=== PATIENT | male | born 1980 | race Two or more races ===

== ENCOUNTER 2020-07-16 09:27 | Outpatient (REF) | payer OTHER, SELFPAY | END 2020-07-16 09:28 | disposition home or self-care (01) | LOC: HO.LAB 09:27 | PROVIDERS: Visit Provider Internal Medicine | DX: Z20.828 Contact with and (suspected) exposure to other viral communicable diseases (principal) | CPT/HCPCS: C9803; U0003 ==

== ENCOUNTER 2020-10-02 13:20 | Outpatient (REF) | payer OTHER, SELFPAY | END 2020-10-02 13:21 | disposition home or self-care (01) | LOC: HO.LAB 13:20 | PROVIDERS: Visit Provider Internal Medicine | DX: Z20.822 Contact with and (suspected) exposure to COVID-19 (principal) | CPT/HCPCS: 36415; C9803; U0003; U0005 ==

== ENCOUNTER 2021-08-21 09:04 | Outpatient (REF) | payer OTHER, SELFPAY ==
[2021-08-21 09:56] LABS: COVID-19 Test Positive (Negative); IDNOW Serial# 55D5AD1C
== END 2021-08-21 09:05 | disposition home or self-care (01) ==
LOC: HO.LAB 09:04
PROVIDERS: Visit Provider Internal Medicine
DX: Z20.822 Contact with and (suspected) exposure to COVID-19 (principal)
CPT/HCPCS: 36415; 87635; C9803

== ENCOUNTER 2021-10-27 11:01 | Outpatient (REF) | payer OTHER, SELFPAY ==
--- NOTE | ~2021-10-27 | XR_ITS ---
EXAMINATION: XR CHEST CLINICAL INFORMATION: Back pain COMPARISON: None TECHNIQUE: 2 views of the chest were obtained. FINDINGS: No significant abnormality is noted involving the heart, lungs, mediastinum, bony thorax or soft tissues. XR/XR chest 2V IMPRESSION: Unremarkable examination.
== END 2021-10-27 11:02 | disposition home or self-care (01) ==
LOC: HO.HMGCX 11:01
PROVIDERS: Visit Provider Physician Assistant
DX: M54.6 Pain in thoracic spine (principal); R61 Generalized hyperhidrosis
CPT/HCPCS: 71046

== ENCOUNTER 2021-11-03 12:58 | Emergency (ER) | payer OTHER, SELFPAY ==
--- NOTE | 2021-11-03 13:25 | ED_ITS ---
HPI - Extremity Injury (Lower) General Stated Complaint: l foot pain Time Seen by Provider: 11/03/21 13:25 Source: patient Mode of arrival: ambulatory Limitations: no limitations History of Present Illness HPI Narrative: Patient was fine this morning and then developed pain to his left foot and has an area of redness to his lower leg. No injury, no fever, no chills Onset (ago): hour(s) Exacerbating factors: weight bearing and movement Related Data Previous Rx's Medication Instructions Recorded loratadine 10 mg tablet 10 mg PO DAILY 90 Days #90 tab 07/30/21 cyclobenzaprine 5 mg tablet 10 mg PO BID PRN #20 tab 10/27/21 methylprednisolone 4 mg tablets in 4 mg PO DAILY #21 ea 10/27/21 a dose pack (Medrol (Lino)) umeclidinium 62.5 mcg/actuation 1 inh INHALATION DAILY 30 Days #30 10/27/21 blister powder for inhalation ea (Incruse Ellipta) cephalexin 500 mg capsule 500 mg PO QID 7 Days #28 cap 11/03/21 Allergies Allergy/AdvReac Type Severity Reaction Status Date / Time No Known Allergies Allergy Verified 11/03/21 13:34 Review of Systems Constitutional: Constitutional: Reports no additional constitutional complaints Eyes: Eyes: Reports no additional eye complaints ENT: Denies dizziness Cardiovascular: Cardiovascular: Reports no additional cardiovascular complaints Respiratory: Respiratory: Reports as per HPI Gastrointestinal: Gastrointestinal: Reports no additional gastrointestinal complaints Musculoskeletal: Musculoskeletal: Reports no additional musculoskeletal complaints Integumentary/Breasts: Skin/Breast: Denies rash Neurologic: Reports system reviewed and no additional complaints, except as documented, Denies dizziness and Denies Sensory deficit (Neuro) Psychiatric: Psychiatric: Denies anxiety [facility] Social History Social History Advance Directives: No Advance Directives Information Provided: Yes Physical Exam Const: General: healthy appearing Nutritional Appearance: average body habitus Orientation/consciousness: oriented to person and patient oriented x3 Limitations: no limitations HENMT: Head: Yes normal to inspection Ears: external ears normal General nose exam: Normal external nose present Mouth: Normal oral and palatal mucosa present and oropharynx normal Throat: Yes posterior oropharynx normal Eyes: General: appearance normal, both eyes and all related structures Neck: Other: supple Neck: Yes normal visual inspection Chest: Chest palpation & inspection: normal inspection of the chest Resp: Auscultation: clear to auscultation bilaterally Cardio: Jugular venous distension: no JVD Rate: regular rate Rhythm: regular rhythm Heart sounds: S1 normal heart sound present and S2 normal heart sound present GI: Inspection: Yes normal to inspection Palpation (GI): Soft to palpation, nontender and No hepatosplenomegaly present Auscultation: normal bowel sounds : General: Yes no CVA tenderness Back/Spine/Pelvis: Back: no CVA tenderness Skin: Other: area of redness and warmth to lower extremity just above the foot in the lower anterior hutchins Neuro: General: oriented to person and patient oriented x3 Cranial nerves: Yes CN's II-XII intact bilaterally Motor exam (neuro): 5/5 motor strength present throughout Sensory Exam: No Sensory deficit (Neuro) Extrem: Other: FROM of ankle, normal DP and PT pulses General: Yes normal to inspection Psych: Appearance: grossly normal Course Reevaluation(s) Reevaluation #1: patient with what appears to be a early cellulitis of the lower leg will start keflex and dc home Time: 13:33 Discharge Plan Discharge Clinical Impression: Cellulitis Patient Disposition: Home, Self-Care Instructions: Cellulitis (ED) Prescriptions: New cephalexin 500 mg capsule 500 mg PO QID 7 Days Qty: 28 0RF No Action loratadine 10 mg tablet 10 mg PO DAILY 90 Days Qty: 90 0RF Incruse Ellipta 62.5 mcg/actuation blister with device 1 inh inhalation DAILY 30 Days Qty: 30 2RF methylprednisolone [Medrol (Lino)] 4 mg tablets,dose pack 4 mg PO DAILY Qty: 21 0RF Rx Instructions: follow dose lino instructions cyclobenzaprine 5 mg tablet 10 mg PO BID PRN (Reason: muscle spasm) Qty: 20 0RF Referrals: [facility], [facility] [Primary Care Provider] - 1 week
== END 2021-11-03 13:52 | disposition home or self-care (01) ==
PROVIDERS: Emergency Provider Emergency Medicine; PCP Nurse Practitioner Family
DX: L03.116 Cellulitis of left lower limb (principal); M79.672 Pain in left foot
CPT/HCPCS: 99281

== ENCOUNTER 2022-08-03 17:06 | Emergency (ER) | payer OTHER, SELFPAY ==
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
[2022-08-03 17:14] VITALS: BP 110/70; PULSE 130; O2SAT 97
[2022-08-03 17:21] VITALS: BP 115/59; PULSE 106; RESP 18; TEMP 36.3; O2SAT 97; BMI 23.3
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
[2022-08-03] MEDS: Diphth,Pertus(ACell),Tet Adult 0.5 ML SYRINGE IM (18:58)
== END 2022-08-03 20:00 | disposition home or self-care (01) ==
PROVIDERS: Emergency Provider Emergency Medicine; PCP Nurse Practitioner Family
DX: S01.112A Laceration without foreign body of left eyelid and periocular area, initial encounter (principal); Y04.2XXA Assault by strike against or bumped into by another person, initial encounter; Y93.89 Activity, other specified; Y92.414 Local residential or business street as the place of occurrence of the external cause; Y99.9 Unspecified external cause status
CPT/HCPCS: 12052; 70450; 70486; 72125; 90471; 90715; 99282; 99284

== ENCOUNTER 2022-10-06 08:29 | Outpatient (REF) | payer OTHER, SELFPAY ==
[2022-10-06 08:49] LABS: MANUAL DIFF FLAG NO
[2022-10-06 09:20] LABS: Basophils Absolute Auto 0.1 X10*3/uL (0.0-0.2); Basophils Percent Auto 0.5 % (0-2); Eosinophils Absolute Auto 0.2 X10*3/uL (0.0-0.4); Eosinophils Percent Auto 1.6 % (0-4); Hemoglobin 14.1 g/dl (14.0-18.0); Imm Gran Abs Auto 0.04 X10*3/uL (0.00-0.03); Imm Gran Pct Auto 0.3 % (0.0-0.4); Lymphocytes Absolute Auto 2.8 X10*3/uL (1.2-4.9); Lymphocytes Percent Auto 22.5 % (20-40); Mean Corpuscular HGB Conc 33.6 g/dl (31.0-36.0); Mean Corpuscular Hemoglobin 32.6 pg (27.0-33.0); Mean Platelet Volume 9.7 fL (9.4-12.4); Monocytes Absolute Auto 0.8 X10*3/uL (0.1-1.2); Monocytes Percent Auto 6.2 % (2-11); Neutrophils Absolute Auto 8.5 x10*3/uL (2.0-8.3); Neutrophils Percent Auto 68.9 % (45-73); Platelet Count 251 X10*3/uL (160-400); Red Blood Count 4.33 X10*6/uL (4.60-5.80); Red Cell Distribution Width 13.7 % (11.0-16.0); White Blood Count 12.3 X10*3/uL (4.8-10.8)
[2022-10-06 10:30] LABS: Appearance Urine Clear; Color Urine Yellow; Glucose Urine UA Negative (Negative); Leukocyte Esterase Urine Negative (Negative); Nitrite Urine Negative (Negative); PH 6.5 (5.0-9.0); Specific Gravity - Urine <= 1.005 (1.005-1.025); Urine Blood Negative (Negative); Urine Ketones Negative (Negative); Urine Protein Negative (Neg-Trace)
[2022-10-06 10:44] LABS: Alanine Aminotransferase 15 U/L (0-40); Albumin Level 4.3 g/dL (3.5-5.0); Alkaline Phosphatase 73 U/L (39-117); Anion Gap 15 (12-20); Aspartate Amino Transferase 17 U/L (5-37); Bilirubin Total 0.5 mg/dL (0.0-1.0); Blood Urea Nitrogen 11 mg/dL (9-16); Carbon Dioxide 24 mmol/L (22-29); Chloride 107 mmol/L (96-108); Cholesterol 206 mg/dL; Estimated Glomerular Filt Rate > 60; Glucose Fasting 81 mg/dL (60-99); HDL Cholesterol 50 mg/dL; LDL Cholesterol Calculated 142 mg/dl; Potassium 4.5 mmol/L (3.3-5.1); Sodium 141 mmol/L (135-145); Total Protein 6.5 g/dL (6.5-8.0); Triglycerides 74 mg/dL
[2022-10-06 10:51] LABS: TSH reflex Free T4 0.74 uIU/mL (0.32-4.0)
[2022-10-06 11:57] LABS: Creatinine Urine 11.27 mg/dL; Microalbumin Urine < 5.0 mg/L
== END 2022-10-06 08:30 | disposition home or self-care (01) ==
LOC: HO.LAB 08:29
PROVIDERS: PCP Family Medicine; Visit Provider Family Medicine
DX: Z00.00 Encounter for general adult medical examination without abnormal findings (principal); Z12.5 Encounter for screening for malignant neoplasm of prostate; I10 Essential (primary) hypertension
CPT/HCPCS: 36415; 80053; 80061; 81003; 82043; 84153; 84443; 85025

== ENCOUNTER → 2022-12-25 12:22 | Outpatient (BNVA) | payer OTHER, SELFPAY | PROVIDERS: PCP Family Medicine; Visit Provider Orthopaedic Surgery | DX: M67.432 Ganglion, left wrist (principal); R20.0 Anesthesia of skin; R20.2 Paresthesia of skin | CPT/HCPCS: 99202 ==

== ENCOUNTER 2023-01-01 12:22 | Outpatient (REF) | payer OTHER, SELFPAY ==
--- NOTE | ~2023-01-01 | XR_ITS ---
EXAMINATION: XR CHEST CLINICAL INFORMATION: Cough COMPARISON: Previous chest TECHNIQUE: 2 views of the chest were obtained. FINDINGS: The cardiac and mediastinal contours are normal. There is faint increased attenuation in the right upper lung for example in between the posterior fourth and fifth ribs questionable for right upper lobe pneumonitis or small infiltrate versus changes from overlying soft tissues. This was not seen on October 2021 exam. The lungs are otherwise clear. No pleural effusion. No pneumothorax. Mild degenerative changes of the spine. XR/XR chest 2V IMPRESSION: Question faint increased attenuation in the right upper lobe questionable for pneumonitis or small infiltrate versus overlying soft tissues.
[2023-01-01 12:40] LABS: MANUAL DIFF FLAG NO
[2023-01-01 13:18] LABS: Basophils Absolute Auto 0.1 X10*3/uL (0.0-0.2); Basophils Percent Auto 0.7 % (0-2); Eosinophils Absolute Auto 0.2 X10*3/uL (0.0-0.4); Eosinophils Percent Auto 1.4 % (0-4); Hematocrit 37.5 % (42.0-52.0); Hemoglobin 12.8 g/dl (14.0-18.0); Imm Gran Abs Auto 0.05 X10*3/uL (0.00-0.03); Imm Gran Pct Auto 0.4 % (0.0-0.4); Lymphocytes Percent Auto 25.6 % (20-40); Mean Corpuscular HGB Conc 34.1 g/dl (31.0-36.0); Mean Corpuscular Hemoglobin 32.7 pg (27.0-33.0); Mean Corpuscular Volume 95.9 fL (80.0-98.0); Mean Platelet Volume 9.5 fL (9.4-12.4); Monocytes Absolute Auto 0.8 X10*3/uL (0.1-1.2); Monocytes Percent Auto 6.4 % (2-11); Neutrophils Absolute Auto 7.7 x10*3/uL (2.0-8.3); Neutrophils Percent Auto 65.5 % (45-73); Platelet Count 240 X10*3/uL (160-400); Red Blood Count 3.91 X10*6/uL (4.60-5.80); Red Cell Distribution Width 13.8 % (11.0-16.0); White Blood Count 11.7 X10*3/uL (4.8-10.8)
[2023-01-01 13:50] LABS: Anion Gap 7 (12-20); Blood Urea Nitrogen 9 mg/dL (9-16); Calcium 9.1 mg/dL (8.4-10.2); Carbon Dioxide 30 mmol/L (22-29); Chloride 108 mmol/L (96-108); Estimated Glomerular Filt Rate > 60; Glucose Random 79 mg/dL (60-115); Potassium 3.8 mmol/L (3.3-5.1); Sodium 141 mmol/L (135-145)
== END 2023-01-01 12:23 | disposition home or self-care (01) ==
LOC: HO.XRAY 12:22
PROVIDERS: PCP Family Medicine; Visit Provider Family Medicine
DX: Z00.00 Encounter for general adult medical examination without abnormal findings (principal); R05.9 Cough, unspecified
CPT/HCPCS: 36415; 71046; 80048; 85025

== ENCOUNTER 2023-02-06 04:57 | Emergency (ER) | payer OTHER, SELFPAY ==
[2023-02-06 04:58] VITALS: BP 102/60; PULSE 88; RESP 16; TEMP 36.6; O2SAT 100; BMI 23.4
[2023-02-06 05:16] VITALS: BP 106/62; PULSE 91; RESP 17; TEMP 36.4; O2SAT 100
[2023-02-06 07:12] VITALS: BP 106/65; PULSE 76; RESP 14; O2SAT 100
[2023-02-06 07:14] LABS: Appearance Urine Clear; Color Urine Yellow; Glucose Urine UA Negative (Negative); Leukocyte Esterase Urine Negative (Negative); Nitrite Urine Negative (Negative); PH 6.5 (5.0-9.0); Specific Gravity - Urine <= 1.005 (1.005-1.025); Urine Blood Negative (Negative); Urine Ketones Negative (Negative); Urine Protein Negative (Neg-Trace)
--- NOTE | 2023-02-06 07:25 | ED.BACK ---
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 Patient reports he bent down to picker / packer a box this morning when he felt his lower back spasm and lock up . This took his breath away for a moment. He is able to ambulate without difficulty. No radiation of pain. Denies fever, SOB, N/V, weakness/ numbness/ tingling of the LE. Related Data Previous Rx's Medication Instructions Recorded loratadine 10 mg tablet 10 mg PO DAILY 90 days #90 tabs 11/26/21 ibuprofen 800 mg tablet 800 mg PO Q8H PRN pain 14 days #42 09/23/22 tabs umeclidinium 62.5 mcg/actuation 1 inh inhalation DAILY 30 days #30 12/24/22 blister powder for inhalation ea (Incruse Ellipta) cyclobenzaprine 10 mg tablet 10 mg PO TID PRN muscle spasm #10 02/06/23 tabs ibuprofen 800 mg tablet 800 mg PO Q8H PRN pain #20 tabs 02/06/23 Allergies Allergy/AdvReac Type Severity Reaction Status Date / Time No Known Allergies Allergy Verified 12/25/22 12:25 Review of Systems Review of Systems: Yes all other systems are reviewed and are negative PMFSH Past Medical History Attestation statement: The following information was validated with the patient. Source: old records reviewed and nursing notes reviewed Medical History ADD (attention deficit disorder) ADHD Asthma COPD (chronic obstructive pulmonary disease) Smoker Family History Family History Mother Mental health disorder Substance abuse Brother Mental health disorder Substance abuse Maternal Grandmother Mental health disorder Maternal Aunt Substance abuse Social History Social History Housing: House Alcohol intake: never Patient Tobacco Use Status: Former Tobacco user Smoked in Last 30 Days: Yes e-Cigarette/Vaping Use: Never Used Second Hand Smoke Exposure: No Use of substances other than those prescribed or required for medical reasons: No Any prior treatment program specific to substance use: No Advance Directives: No Advance Directives Information Provided: Yes Current occupational status: employed 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 Physical Exam Vital Signs: Vital Signs: Last Vital Signs Temp 97.5 F 02/06/23 05:16 Pulse 76 02/06/23 07:12 Resp 14 02/06/23 07:12 BP 106/65 02/06/23 07:12 Pulse Ox 100 02/06/23 07:12 O2 Del Method Room Air 02/06/23 07:12 BMI result Body Mass Index 23.4 Const: General: cooperative, healthy appearing, no acute distress, alert and awake Orientation/consciousness: patient oriented x3 Chest: Other: NSR, no murmurs, rubs or gallops Resp: Other: CTA B/L Back/Spine/Pelvis: Other: + left sided msk TTP Thoracic/Lumbar Spine: thoracic and lumbar spine normal to inspection Neuro: General: patient oriented x3, gait normal and no focal motor deficits Cranial nerves: Yes Normal facial strength present Cognition (Neuro): normal cognition Gait exam (Neuro): Normal gait present Motor exam (neuro): 5/5 motor strength present throughout Extrem: General: Yes normal to inspection and Yes full ROM Medical Decision Making Medical Decision Making [facility] Narrative: 42 year old presenting to the emergency department today with lower back pain s/p lifting a heavy box at work this morning. No fever, bowel/ bladder incontinence/ retention, radiation of symptoms. Physical exam significant for left-sided paraspinal msk tenderness. Normal gait, able to ambulate without difficulty. No imaging necessary at this time. Differential Diagnosis Low suspicion for fracture, cord compression, epidural abscess. Unlikely rib fracture or pneumothorax. Likely lumbar muscle strain. Admission/Observation I considered xray. Not done- low suspcision of spinal or rib fracture. Lab Data [facility] Lab Attestation statement: I reviewed the patient's lab results. Labs: Lab Results 02/06/23 Range/Units 07:07 Urine Color Yellow Urine Appearance Clear Urine pH 6.5 (5.0-9.0) Ur Specific [place] <= 1.005 (1.005-1.025) Urine Protein Negative (Neg-Trace) mg/dL Urine Glucose (UA) Negative (Negative) mg/dL Urine Ketones Negative (Negative) mg/dL Urine Blood Negative (Negative) Urine Nitrite Negative (Negative) Ur Leukocyte Esterase Negative (Negative) Prescription Management I considered prescription management with: Pain Medication (I considered narcotic, not given d/t muscular pain. No fractures.) Chronic Conditions Patient?s care impacted by: Other (Spina bifida occulta, asthma) Discharge Plan Discharge Clinical Impression: Low back pain Patient Disposition: Home, Self-Care Instructions: Acute Low Back Pain (ED) Prescriptions: New ibuprofen 800 mg tablet 800 mg PO Q8H PRN (Reason: pain) Qty: 20 0RF cyclobenzaprine 10 mg tablet 10 mg PO TID PRN (Reason: muscle spasm) Qty: 10 0RF No Action loratadine 10 mg tablet 10 mg PO DAILY 90 Days Qty: 90 0RF Incruse Ellipta 62.5 mcg/actuation blister with device 1 inh inhalation DAILY 30 Days Qty: 30 2RF ibuprofen 800 mg tablet 800 mg PO Q8H PRN (Reason: pain) 14 Days Qty: 42 0RF Stand Alone Forms: Work/School Release Interventions: ED Discharge Assessment Last Done: 02/06/23 07:34 Discharge Date/Time: 02/06/23 07:34
--- NOTE | 2023-02-06 07:34 | PC.NURSE ---
low back pain, worse w movement, nad, ua clean,
== END 2023-02-06 07:34 | disposition home or self-care (01) ==
PROVIDERS: Emergency Provider Emergency Medicine; PCP Family Medicine
DX: Z04.2 Encounter for examination and observation following work accident (principal); M54.50 Low back pain, unspecified; E78.00 Pure hypercholesterolemia, unspecified; Q76.0 Spina bifida occulta; F17.200 Nicotine dependence, unspecified, uncomplicated; Z79.899 Other long term (current) drug therapy
CPT/HCPCS: 81003; 99283; 99284

== ENCOUNTER 2023-02-25 09:36 | Outpatient (REF) | payer OTHER, SELFPAY | END 2023-02-25 09:37 | disposition home or self-care (01) | LOC: HO.NEURO 09:36 | PROVIDERS: PCP Family Medicine; Visit Provider Orthopaedic Surgery | DX: R20.0 Anesthesia of skin (principal); R20.2 Paresthesia of skin | CPT/HCPCS: 95886; 95910 ==

== ENCOUNTER 2023-04-15 09:37 | Outpatient (AMB) | payer OTHER, SELFPAY ==
--- NOTE | 2023-04-15 09:51 | A.OFFPC_ITS ---
Vital Signs 04/15/23 09:52 Height 5 ft 6 in Weight 140 lb 4 oz BMI 22.6 BP 110/68 Blood Pressure Location Lt brachial Position Sitting Respiration 16 Pulse 71 Pulse Source Pulse Oximeter Pulse Oximetry (%) 98 Intake Visit Reasons: f/u medication Intake Note: Patient is here with rash on side of neck, tried creams, but looks nasty with bump. He needs refill of Ibuprofen. Patient is also requesting refill of his inhalers, too. Allergies No Known Allergies Allergy (Verified 04/15/23 09:55) Tobacco use date assessed: 09/23/22 Dental Screening Dental Screen Date: 04/15/23 Did you have a dental visit in the last 12 months?: Yes Did you have a dental problem in the last 6 months where you did not have access to dental care?: No Was dental information given to patient?: Patient has dentist HPI f/u medication HPI Details 42 y/o male presents with complaints of a rash. He has a rash on the side of his neck - he states he has trialed creams. Hx of COPD and is requesting a refill of his inhalers. HPI Comments History of Present Illness Details Documentation assistance for Dipak Moseley MD, was provided by Je Cervantes, Recreation Superintendent on 04/15/2023 10:18 AM EST. I, Dr. Moseley, have read, observed, and verified documentation. 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 1. Little interest or pleasure in doing things: not at all 2. Feeling down, depressed, or hopeless: not at all 3. Trouble falling or staying asleep, or sleeping too much: not at all 4. Feeling tired or having little energy: not at all 5. Poor appetite or overeating: not at all 6. Feeling bad about yourself - or that you are a failure or have let yourself or your family down: not at all 7. Trouble concentrating on things, such as reading the newspaper or watching television: not at all 8. Moving or speaking so slowly that other people could have noticed. Or the opposite - being so fidgety or restless that you have been moving around a lot more than usual: not at all 9. Thoughts that you would be better off or of hurting yourself in some way: not at all Total score: 0 Source: Developed by Drs. Del Koch, Macie Aparicio, Jigar Roper and colleagues, with an educational sylvester from [employer]. Thrive Questionnaire Date Thrive assessed: 09/23/22 I am a: Patient What is your living situation today?: I have a steady place to live Within the past 12 months, did the food you bought not last and you didn't have the money to get more?: Never true Within the past 12 months, did you worry whether your food would run out before you got money to buy more?: Never true Do you have trouble paying for medicines?: No Do you have trouble getting transportation to medical appointments?: No Do you have trouble paying your heating and electricity bill?: No Do you have trouble taking care of your child, family member or friend?: No Do you have trouble with day-to-day activities such as bathing, preparing meals, shopping, managing finances, etc.?: No Are you currently unemployed and looking for a job?: No Are you interested in more education?: No AUDIT C Alcohol Use Questionnaire (AUDIT-C) 1. How often do you have a drink containing alcohol?: Never 3. How often do you have six or more drinks on one occasion?: Never Total Score: 0 ODIN-7 AMB Questionnaire ODIN-7 Date ODIN - 7 assessed: 09/23/22 Feeling nervous, anxious, or on edge: 3 = Nearly every day Not being able to stop or control worryin = Several days Worrying too much about different things: 3 = Nearly every day Trouble relaxin = Nearly every day Being so restless that it is hard to sit still: 3 = Nearly every day Becoming easily annoyed or irritable: 1 = Several days Feeling afraid as if something awful might happen: 0 = Not at all Total ODIN-7 score (0-4 normal; 5-9 mild; 10-14 moderate; 15-21 severe): 14 Source: Developed by Drs. Del Koch, Macie Aparicio, Jigar Roper and colleagues, with an educational sylvester from [employer]. ACT Questionnaire In the past 4 weeks, how much of the time did your asthma keep you from getting as much done at work, school or at home?: All of the time During the past 4 weeks, how often have you had shortness of breath?: More than once a day During the past 4 weeks, how often did your asthma symptoms wake you up at night or earlier than usual in the morning?: 4 or more nights a week During the past 4 weeks, how often have you had to use your rescue inhaler or nebulizer medication?: More than 3 times per day How would you rate your asthma control during the past 4 weeks?: Somewhat contr olled Score: 7 Review of Systems Const Denies chills, Denies fatigue, Denies fever(s), Denies headache(s) and Denies weakness ENT Denies dizziness and Denies headache(s) Card Denies dyspnea Resp Denies cough, Denies dyspnea, Denies wheezing and Denies other (shortness of breath) Musc Denies numbness and Denies tingling Skin/Breast Reports rash Neuro Denies dizziness, Denies headache(s), Denies numbness, Denies tingling and Denies weakness Psych Denies anxiety and Denies depression Endo Denies fatigue Aller/Immun Denies wheezing Physical exam (Primary Care) Vital Signs: Last Vital Signs Pulse 71 04/15/23 09:52 Resp 16 04/15/23 09:52 BP 110/68 04/15/23 09:52 Pulse Ox 98 04/15/23 09:52 BMI result Body Mass Index 22.6 Tobacco/Smoking Status: Tobacco use Status Tobacco use date assessed 09/23/22 04/15/23 09:58 Patient Tobacco Use Status Former Tobacco user 04/15/23 09:58 e-Cigarette/Vaping Use Never Used 04/15/23 09:58 PHQ-9: PHQ-9 Score PHQ-9: Total score 0 04/15/23 10:07 Thrive Assessment: Date of Thrive Assessment Date Thrive assessed 09/23/22 04/15/23 09:58 Const General: well developed; No acute distress Nutritional Appearance: well nourished Orientation/consciousness: patient oriented x3 HENMT Head: Yes normocephalic and Yes atraumatic Eyes General: appearance normal, both eyes and all related structures Pupils: Equal, round and reactive pupils present EOM: EOMs intact bilaterally Resp Effort & Inspection: normal respiratory effort Neuro General: patient oriented x3 and gait normal Cranial nerves: Yes Equal, round and reactive pupils present Psych Affect: normal affect Assessment and Plan Assessment & Plan (1) Rash: Code(s): R21 - Rash and other nonspecific skin eruption Plan: Folliculitis at the back of his neck Will give him a clindamycin gel As there is a significant inflammatory component, he can use some betamethasone as well. Can use Hibiclens for prevention (2) COPD (chronic obstructive pulmonary disease): Code(s): J44.9 - Chronic obstructive pulmonary disease, unspecified Plan: Refilled albuterol and Incruse Ellipta Medications: New albuterol sulfate 90 mcg/actuation 2 puffs inhalation Q4-6H 30 days PRN 8.5 grams 4RF COPD J44.9 - Chronic obstructive pulmonary disease, unspecified cetirizine (All Day Allergy (cetirizine)) 10 mg PO DAILY 30 days PRN 30 tabs 3RF allergy symptoms clindamycin phosphate 1% 1 appl topical DAILY 14 days 30 grams 0RF betamethasone valerate 0.1% 1 appl topical BID 10 days PRN 15 grams 0RF skin irritation Refilled umeclidinium 62.5 mcg/actuation (Incruse Ellipta) 1 inh inhalation DAILY 30 days 30 ea 2RF Coding Level of Care Code Est Pt Level 3 (92667) Diagnoses Rash R21 COPD (chronic obstructive pulmonary disease) J44.9
[2023-04-15 09:52] VITALS: BP 110/68; PULSE 71; RESP 16; O2SAT 98; BMI 22.6
== END 2023-04-15 10:35 | disposition home or self-care (01) ==
PROVIDERS: PCP Family Medicine; Visit Provider Family Medicine
DX: R21 Rash and other nonspecific skin eruption (principal); J44.9 Chronic obstructive pulmonary disease, unspecified
CPT/HCPCS: 99213

== ENCOUNTER 2023-09-23 05:34 | Emergency (ER) | payer OTHER, SELFPAY ==
[2023-09-23 05:41] VITALS: BP 121/73; PULSE 87; RESP 16; TEMP 37.1; O2SAT 97; BMI 22.1
--- NOTE | 2023-09-23 06:55 | ED.EAR ---
HPI - Ear Problem General Chief complaint: Ear Problems Stated complaint: Earache Time Seen by Provider: 09/23/23 06:33 Source: patient and RN notes reviewed Mode of arrival: ambulatory Limitations: no limitations History of Present Illness HPI Narrative: This is a 43-year-old male, with no known medical problems, presenting to the emergency department complaints of left ear pain x3 days. Patient states that he started to have ear discomfort and used a hair pin to ?scoop whenever was in there?. Patient states that he noticed pus that came out immediately from his left ear and had associated pain. He states that since this he has had increased pain and feels as though his hearing is decreased from his left ear. He has been using ibuprofen and Tylenol for pain however this is not helped with his symptoms. He denies any fevers, chills, cough, sore throat, chest pain or shortness a breath. He is otherwise feeling well. No history of ear infections in the past. He has not had any recent swimming. No other complaints or concerns at this time. MD Complaint: ear pain, ear discharge and decreased hearing Location: left ear Duration: constant Severity: moderate Relieving factors: nothing Exacerbating factors: nothing Discharge from ear: yes - purulent Associated symptoms ear: decreased hearing and external ear tenderness Treatment prior to arrival: none Related Data Previous Rx's Medication Instructions Recorded loratadine 10 mg tablet 10 mg PO DAILY 90 days #90 tabs 11/26/21 cyclobenzaprine 10 mg tablet 10 mg PO TID PRN muscle spasm #10 02/06/23 tabs ibuprofen 800 mg tablet 800 mg PO Q8H PRN pain #20 tabs 02/06/23 albuterol sulfate 90 mcg/actuation 2 puff inhalation Q4-6H PRN COPD 04/15/23 aerosol inhaler 30 days #8.5 grams betamethasone valerate 0.1 % 1 appl topical BID PRN skin 04/15/23 topical cream irritation 10 days #15 grams cetirizine 10 mg tablet (All Day 10 mg PO DAILY PRN allergy 04/15/23 Allergy (cetirizine)) symptoms 30 days #30 tabs clindamycin phosphate 1 % topical 1 appl topical DAILY 14 days #30 04/15/23 gel grams umeclidinium 62.5 mcg/actuation 1 inh inhalation DAILY 30 days #30 04/15/23 blister powder for inhalation ea (Incruse Ellipta) ibuprofen 800 mg tablet 800 mg PO Q8H PRN pain 30 days #90 04/30/23 tabs amoxicillin 875 mg-potassium 1 tab PO BID 7 days #14 tabs 09/23/23 clavulanate 125 mg tablet ofloxacin 0.3 % ear drops 10 drp otic (ear) left DAILY 7 09/23/23 days #10 mL Allergies Allergy/AdvReac Type Severity Reaction Status Date / Time No Known Allergies Allergy Verified 09/23/23 05:41 Review of Systems Review of Systems: Yes all other systems are reviewed and are negative Constitutional: Constitutional: Reports as per [facility] Past Medical History Medical History ADD (attention deficit disorder) ADHD Asthma COPD (chronic obstructive pulmonary disease) Smoker Family History Family History Mother Mental health disorder Substance abuse Brother Mental health disorder Substance abuse Maternal Grandmother Mental health disorder Maternal Aunt Substance abuse Social History Social History Housing: House Alcohol intake: never Patient Tobacco Use Status: Former Tobacco user e-Cigarette/Vaping Use: Never Used Second Hand Smoke Exposure: No Advance Directives: No Advance Directives Information Provided: Yes Current occupational status: employed 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 Right TM and ear canal unremarkable. No mastoid tenderness on the left Head: Yes normal to inspection, Yes normocephalic and Yes atraumatic Ears: hearing grossly normal bilaterally General nose exam: Normal external nose present Face and sinus: Yes normal facial exam Mouth: Normal oral and palatal mucosa present, oropharynx normal and moist mucous membranes Throat: Yes posterior oropharynx normal Eyes: General: appearance normal, both eyes and all related structures Eyelids: Yes eyelids normal Conjunctivae: conjunctivae normal Sclerae: sclerae normal Pupils: Equal, round and reactive pupils present EOM: EOMs intact bilaterally Neck: Neck: Yes normal visual inspection, Yes full ROM and Yes no lymphadenopathy Lymphatic: no lymphadenopathy noted Chest: Chest palpation & inspection: normal inspection of the chest Resp: Effort & Inspection: normal respiratory effort and able to speak in complete sentences Auscultation: clear to auscultation bilaterally, no crackles, no rales, no rhonchi and no wheezes Cardio: Rate: regular rate Rhythm: regular rhythm Heart sounds: S1 normal heart sound present and S2 normal heart sound present GI: Inspection: Yes normal to inspection Skin: General skin exam: no rashes or lesions noted Trauma: no lacerations or abrasions Wounds: no wounds Neuro: General: patient oriented x3 and moves all extremities Cranial nerves: Yes Equal, round and reactive pupils present Extrem: General: Yes normal to inspection Right upper extremity: normal to inspection Left upper extremity: normal to inspection Right lower extremity: normal to inspection Left lower extremity: normal to inspection Medical Decision Making Medical Decision Making [facility] Narrative: This is a 43-year-old male, presenting to the emergency department with complaints of left ear pain x2 days. On arrival, vital signs within normal limits. He is nontoxic-appearing. He has pain with palpation to the pinna and ear lobe tugging. Left ear canal is edematous and erythematous, TM also appears erythematous and bulging however unable to fully visualize TM to ensure no rupture. Differential diagnoses include otitis media, otitis externa, TM perforation, mastoiditis-unlikely. Given findings on clinical exam, clinical findings suspicious for otitis/otitis externa will treat with oral and topical antibiotics. Unable to fully visualize TM therefore can not prescribe topical steroids to help with inflammation. I advised patient to continue taking ibuprofen and Tylenol for pain. Given return precautions. Patient understands and agrees with plan. Patient stable for discharge Differential Diagnosis Differential Diagnoses: The differential diagnosis associated with the presentation includes See above Discharge Plan Discharge Clinical Impression: Otitis media, Otitis externa Patient Disposition: Home, Self-Care Instructions: Otitis Externa (ED), How to Use Ear Drops (ED), Ear Infection (ED) Additional Instructions: You were seen in the emergency department due to left ear pain. Your left ear canal is infected as well as the inner portion of your ear. This requires you to be on oral antibiotics and topical antibiotics. When instilling ear drops in your ears, please let on side for 15 20 minutes to ensure that the ear drop medication is fully getting into your ear canal. Please complete full course of antibiotics even if your symptoms improve. You may alternate between ibuprofen and Tylenol as directed as needed for pain. If any new or worsening symptoms occur including but not limited to worsening pain, fever, chills, chest pain or shortness breast, please return for re-evaluation. Prescriptions: New amoxicillin-pot clavulanate 875-125 mg tablet 1 tab PO BID 7 Days Qty: 14 0RF ofloxacin 0.3 % drops 10 drp otic (ear) left DAILY 7 Days Qty: 10 0RF No Action loratadine 10 mg tablet 10 mg PO DAILY 90 Days Qty: 90 0RF ibuprofen 800 mg tablet 800 mg PO Q8H PRN (Reason: pain) 30 Days Qty: 90 0RF ibuprofen 800 mg tablet 800 mg PO Q8H PRN (Reason: pain) Qty: 20 0RF cyclobenzaprine 10 mg tablet 10 mg PO TID PRN (Reason: muscle spasm) Qty: 10 0RF albuterol sulfate 90 mcg/actuation HFA aerosol inhaler 2 puff inhalation Q4-6H PRN (Reason: COPD) 30 Days Qty: 8.5 4RF cetirizine [All Day Allergy (cetirizine)] 10 mg tablet 10 mg PO DAILY PRN (Reason: allergy symptoms) 30 Days Qty: 30 3RF Incruse Ellipta 62.5 mcg/actuation blister with device 1 inh inhalation DAILY 30 Days Qty: 30 2RF clindamycin phosphate 1 % gel 1 appl topical DAILY 14 Days Qty: 30 0RF betamethasone valerate 0.1 % cream 1 appl topical BID PRN (Reason: skin irritation) 10 Days Qty: 15 0RF
== END 2023-09-23 07:25 | disposition home or self-care (01) ==
PROVIDERS: Emergency Provider Internal Medicine; PCP Family Medicine
DX: H66.92 Otitis media, unspecified, left ear (principal); H60.92 Unspecified otitis externa, left ear; H92.02 Otalgia, left ear
CPT/HCPCS: 99282; 99283

== ENCOUNTER 2023-10-12 23:54 | Emergency (ER) | payer OTHER, SELFPAY ==
--- NOTE | 2023-10-13 00:34 | PC.NURSE ---
called x 3 to triage. No answer.
== END 2023-10-13 01:18 | disposition left against medical advice (07) ==
PROVIDERS: Emergency Provider Emergency Medicine
DX: Z53.21 Procedure and treatment not carried out due to patient leaving prior to being seen by health care provider (principal)

== ENCOUNTER 2023-11-25 09:31 | Outpatient (AMB) | payer OTHER, SELFPAY ==
[2023-11-25 09:36] VITALS: BP 128/62; PULSE 58; O2SAT 96; BMI 22.6
--- NOTE | 2023-11-25 09:36 | A.OFFPC_ITS ---
Vital Signs 11/25/23 09:36 Height 5 ft 6 in Weight 140 lb BMI 22.6 BP 128/62 Blood Pressure Location Lt brachial Position Sitting Pulse 58 Pulse Source Pulse Oximeter Pulse Oximetry (%) 96 Oxygen Delivery Method Room Air Intake Visit Reasons: follow up chronic conditions Intake Note: Patient is here for follow up on chronic conditions. Allergies No Known Allergies Allergy (Verified 11/25/23 09:38) Tobacco use date assessed: 11/25/23 Dental Screening Dental Screen Date: 11/25/23 Did you have a dental visit in the last 12 months?: Yes Did you have a dental problem in the last 6 months where you did not have access to dental care?: No Was dental information given to patient?: Patient has dentist HPI follow up chronic conditions HPI Details 43 y/o male [facility]. PHQ-9 16 and ODIN-7 14 today. He reports increased stressors - is dealing with homelessness and is currently staying at a friend's. He sees a therapist every Wednesday. Pt notes he had just started smoking cigarettes again due to increased anxiety. Had just started back up again about a week ago. Pt states he uses Incruse Ellipta daily and albuterol throughout the day. 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 1. Little interest or pleasure in doing things: nearly every day 2. Feeling down, depressed, or hopeless: nearly every day 3. Trouble falling or staying asleep, or sleeping too much: not at all 4. Feeling tired or having little energy: more than half the days 5. Poor appetite or overeating: several days 6. Feeling bad about yourself - or that you are a failure or have let yourself or your family down: nearly every day 7. Trouble concentrating on things, such as reading the newspaper or watching television: several days 8. Moving or speaking so slowly that other people could have noticed. Or the opposite - being so fidgety or restless that you have been moving around a lot more than usual: nearly every day 9. Thoughts that you would be better off or of hurting yourself in some way: not at all Total score: 16 Depression Screening Interpretation: Positive Depression Screening Done: Yes 40095 - PHQ-9 Billing: Yes Source: Developed by Drs. Del Koch, Macie Aparicio, Jigar Roper and colleagues, with an educational sylvester from [employer]. Thrive Questionnaire Date Thrive assessed: 11/25/23 I am a: Patient What is your living situation today?: I have a steady place to live Within the past 12 months, did the food you bought not last and you didn't have the money to get more?: Never true Within the past 12 months, did you worry whether your food would run out before you got money to buy more?: Never true Do you have trouble paying for medicines?: No Do you have trouble getting transportation to medical appointments?: No Do you have trouble paying your heating and electricity bill?: No Do you have trouble taking care of your child, family member or friend?: No Do you have trouble with day-to-day activities such as bathing, preparing meals, shopping, managing finances, etc.?: Yes Are you currently unemployed and looking for a job?: No Are you interested in more education?: No THRIVE Score: 0 AUDIT C Alcohol Use Questionnaire (AUDIT-C) 1. How often do you have a drink containing alcohol?: Never 3. How often do you have six or more drinks on one occasion?: Never Total Score: 0 ODIN-7 AMB Questionnaire ODIN-7 Date ODIN - 7 assessed: 11/25/23 Feeling nervous, anxious, or on edge: 1 = Several days Not being able to stop or control worryin = Several days Worrying too much about different things: 3 = Nearly every day Trouble relaxin = Nearly every day Being so restless that it is hard to sit still: 3 = Nearly every day Becoming easily annoyed or irritable: 3 = Nearly every day Feeling afraid as if something awful might happen: 0 = Not at all Total ODIN-7 score (0-4 normal; 5-9 mild; 10-14 moderate; 15-21 severe): 14 Source: Developed by Drs. Del Koch, Macie Aparicio, Jigar Roper and colleagues, with an educational sylvester from [employer]. ODIN-7 Assessment Billing ODIN-7 Assessment Tool: ODIN-7 Assessment 95689 Review of Systems Const Denies chills, Denies fatigue, Denies fever(s), Denies headache(s) and Denies weakness ENT Denies dizziness and Denies headache(s) Card Denies chest pain, Denies lightheadedness, Denies dyspnea and Denies other (Palpitations) Resp Denies cough, Denies dyspnea, Denies wheezing and Denies other ( shortness of breath) Musc Denies numbness and Denies tingling Neuro Denies dizziness, Denies headache(s), Denies numbness, Denies tingling, Denies paresthesias and Denies weakness Psych Denies anxiety and Denies depression Endo Denies fatigue Aller/Immun Denies wheezing Physical exam (Primary Care) Vital Signs: Last Vital Signs Pulse 58 11/25/23 09:36 BP 128/62 11/25/23 09:36 Pulse Ox 96 11/25/23 09:36 Oxygen Delivery Method Room Air 11/25/23 09:36 BMI result Body Mass Index 22.6 Tobacco/Smoking Status: Tobacco use Status Tobacco use date assessed 11/25/23 11/25/23 09:47 Patient Tobacco Use Status Former Tobacco user 11/25/23 09:47 e-Cigarette/Vaping Use Never Used 11/25/23 09:47 PHQ-9: PHQ-9 Score PHQ-9: Total score 16 11/25/23 09:47 Depression Screening Interpretation: Positive Thrive Assessment: Date of Thrive Assessment Date Thrive assessed 11/25/23 11/25/23 09:47 Const General: no acute distress and well developed Nutritional Appearance: well nourished Orientation/consciousness: patient oriented x3 HENMT Head: Yes normocephalic and Yes atraumatic Eyes General: appearance normal, both eyes and all related structures Pupils: Equal, round and reactive pupils present EOM: EOMs intact bilaterally Resp Other: Wheezing Effort & Inspection: normal respiratory effort Auscultation: clear to auscultation bilaterally Cardio Rate: regular rate Rhythm: regular rhythm Heart sounds: S1 normal heart sound present, S2 normal heart sound present, no gallops, no murmurs and no rubs Neuro General: patient oriented x3 and gait normal Cranial nerves: Yes Equal, round and reactive pupils present Psych Affect: normal affect Assessment and Plan Assessment & Plan (1) COPD (chronic obstructive pulmonary disease): Code(s): J44.9 - Chronic obstructive pulmonary disease, unspecified Plan: Patient?has?started?smoking?again?and?I?encouraged?him?to?keep?trying?to?wean?do wn.??He?used?vapes?to?wean?down?last?time?and?I?encouraged?this?th ough?ultimately?encouraging?him?to?discontinue?vaping?as?well. Continue?inhaled?medications Use?albuterol?when?wheezing Continue?Incruse?Ellipta?as?prescribed (2) Depression with anxiety: Code(s): F41.8 - Other specified anxiety disorders Plan: Acutely?worsened?secondary?to?his?children's ?mom?kicking?him?out?of?the?house.??He?is?staying?with?a?friend. Encouraged?him?to?follow-up?with?his?therapist?tomorrow Encouraged?him?to?follow-up?with?his?psychiatrist?and?discuss?potential?for?an y?medications?or?medication?changes Referred?him?to?our?nurse?navigator?to?see?if?he?can?help?him?with?his?housing?s ituation. (3) Smoker: Code(s): F17.200 - Nicotine dependence, unspecified, uncomplicated Plan: As?above?encouraged?smoking?cessation Orders: Orders Lipid Panel Today Z00.00 - Encounter for general adult medical examination without abnormal findings Prostate Specific Antigen Scr Today Z12.5 - Encounter for screening for malignant neoplasm of prostate Comprehensive [place]. Panel Fast Today Z00.00 - Encounter for general adult medical examination without abnormal findings Microalbumin, Random (w Creat) Today I10 - Essential (primary) hypertension UA and rflx microscopic Today Z00.00 - Encounter for general adult medical examination without abnormal findings TSH reflex Free T4 Today Z00.00 - Encounter for general adult medical examination without abnormal findings Referrals Nurse Navigator Referral F41.8 - Other specified anxiety disorders Coding Level of Care Code Est Pt Level 3 (27721) Diagnoses COPD (chronic obstructive pulmonary disease) J44.9 Depression with anxiety F41.8 Smoker F17.200 Additional Codes ODIN-7 Assessment Billing - ODIN-7 Assessment Tool: ODIN-7 Assessment 22913 ([id number])
== END 2023-11-25 10:15 | disposition home or self-care (01) ==
PROVIDERS: Visit Provider Family Medicine
DX: J44.9 Chronic obstructive pulmonary disease, unspecified (principal); F41.8 Other specified anxiety disorders; F17.210 Nicotine dependence, cigarettes, uncomplicated; Z59.01 Sheltered homelessness
CPT/HCPCS: 96127; 99213

== ENCOUNTER 2023-12-13 07:09 | Outpatient (REF) | payer OTHER, SELFPAY ==
[2023-12-13 11:50] LABS: Appearance Urine Clear; Color Urine Dark Yellow; Glucose Urine UA Negative (Negative); Leukocyte Esterase Urine Negative (Negative); Nitrite Urine Negative (Negative); PH 8.5 (5.0-9.0); Specific Gravity - Urine 1.015 (1.005-1.025); Urine Blood Negative (Negative); Urine Ketones Negative (Negative); Urine Protein Negative (Neg-Trace)
[2023-12-13 11:59] LABS: Alanine Aminotransferase 14 U/L (0-40); Albumin Level 4.1 g/dL (3.5-5.0); Alkaline Phosphatase 85 U/L (39-117); Anion Gap 11 (12-20); Aspartate Amino Transferase 20 U/L (5-37); Bilirubin Total 0.2 mg/dL (0.0-1.0); Blood Urea Nitrogen 12 mg/dL (9-16); Carbon Dioxide 27 mmol/L (22-29); Chloride 106 mmol/L (96-108); Cholesterol 176 mg/dL (<200); Estimated Glomerular Filt Rate > 60; Glucose Fasting 105 mg/dL (60-99); HDL Cholesterol 45 mg/dL (>40); LDL Cholesterol Calculated 115 mg/dL (<100); Potassium 4.1 mmol/L (3.3-5.1); Sodium 140 mmol/L (135-145); Total Protein 7.3 g/dL (6.5-8.0); Triglycerides 82 mg/dL (<150)
[2023-12-13 12:16] LABS: Prostate Specific Antigen Scr 0.25 ng/mL (<0.05-4.0); TSH reflex Free T4 0.64 uIU/mL (0.32-4.0)
[2023-12-13 12:26] LABS: Creatinine Urine 86.66 mg/dL; Microalbumin Urine < 5.0 mg/L
== END 2023-12-13 07:10 | disposition home or self-care (01) ==
LOC: HO.WFDLDS 07:09
PROVIDERS: Visit Provider Family Medicine
DX: Z00.00 Encounter for general adult medical examination without abnormal findings (principal); I10 Essential (primary) hypertension; R30.0 Dysuria; Z12.5 Encounter for screening for malignant neoplasm of prostate
CPT/HCPCS: 36415; 80053; 80061; 81003; 82043; 82570; 84153; 84443

== ENCOUNTER 2023-12-13 10:08 | Outpatient (REF) | payer OTHER, SELFPAY | END 2023-12-13 10:09 | disposition home or self-care (01) | LOC: HO.LAB 10:08 | PROVIDERS: Visit Provider Family Medicine | DX: Z00.00 Encounter for general adult medical examination without abnormal findings (principal); R30.0 Dysuria | CPT/HCPCS: 87086 ==

== ENCOUNTER 2024-04-13 08:44 | Outpatient (AMB) | payer OTHER, SELFPAY ==
--- NOTE | 2024-04-13 08:51 | A.OFFPC_ITS ---
Vital Signs 04/13/24 09:00 Height 5 ft 6 in Weight 139 lb 4 oz BMI 22.5 BP 100/60 Blood Pressure Location Rt brachial Position Sitting Respiration 16 Pulse 91 Pulse Source Pulse Oximeter Temp 97.7 F Temp Source Tympanic Pulse Oximetry (%) 98 Oxygen Delivery Method Room Air Intake Visit Reasons: CPE with f/u labs and health maintenance 30 mins Intake Note: CPE Allergies No Known Allergies Allergy (Verified 04/13/24 08:55) Tobacco use date assessed: 04/13/24 Dental Screening Dental Screen Date: 04/13/24 Did you have a dental visit in the last 12 months?: No Did you have a dental problem in the last 6 months where you did not have access to dental care?: Yes Was dental information given to patient?: Patient has dentist HPI CPE with f/u labs and health maintenance 30 mins HPI Details 43 y/o male presents for an extended exa m with f/u labs and health maintenance. Labs drawn 12/13/23. Reviewed labs with pt. Had mild anemia before last year. Elevated fasting glucose of 105. TC 176. LDL 115. HDL 45. PSA 0.25. TSH 0.64. Pt notes he had just joined a gym this morning. Pt reports GERD. He notes he had used to take ibuprofen 800mg four times a day. He reports significant back pain. He states he now takes one ibuprofen every other day. He notes he has trialed PT before in the past. Pt reports a cough. Pt reports he continues to smoke. Has been smoking since he was 20 and pt states he quits off and on. [facility] Medical History ADD (attention deficit disorder) ADHD Asthma COPD (chronic obstructive pulmonary disease) Smoker Family History Mother Mental health disorder Substance abuse Brother Mental health disorder Substance abuse Maternal Grandmother Mental health disorder Maternal Aunt Substance abuse Social History (Updated 04/13/24 @ 08:58 by Jonathan Lewis) Housing: House Alcohol intake: never Patient Tobacco Use Status: Current someday Tobacco user Cigarettes Per Day: 1 e-Cigarette/Vaping Use: Never Used Second Hand Smoke Exposure: No Use of substances other than those prescribed or required for medical reasons: Yes Substance Use Type: Marijuana service: No Current occupational status: employed 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 1. Little interest or pleasure in doing things: several days 2. Feeling down, depressed, or hopeless: several days 3. Trouble falling or staying asleep, or sleeping too much: several days 4. Feeling tired or having little energy: several days 5. Poor appetite or overeating: several days 6. Feeling bad about yourself - or that you are a failure or have let yourself or your family down: several days 7. Trouble concentrating on things, such as reading the newspaper or watching television: not at all 8. Moving or speaking so slowly that other people could have noticed. Or the opposite - being so fidgety or restless that you have been moving around a lot more than usual: several days 9. Thoughts that you would be better off or of hurting yourself in some way: not at all Total score: 7 Depression Screening Interpretation: Positive Depression Screening Done: Yes 21308 - PHQ-9 Billing: Yes Source: Developed by Drs. Del Koch, Macie Aparicio, Jigar Roper and colleagues, with an educational sylvester from [employer]. Thrive Questionnaire Date Thrive assessed: 04/13/24 I am a: Patient What is your living situation today?: I have a steady place to live Within the past 12 months, did the food you bought not last and you didn't have the money to get more?: Never true Within the past 12 months, did you worry whether your food would run out before you got money to buy more?: Never true Do you have trouble paying for medicines?: No Do you have trouble getting transportation to medical appointments?: No Do you have trouble paying your heating and electricity bill?: No Do you have trouble taking care of your child, family member or friend?: No Do you have trouble with day-to-day activities such as bathing, preparing meals, shopping, managing finances, etc.?: No Are you currently unemployed and looking for a job?: No Are you interested in more education?: No Please select the resources that you would like help with: None Currently or been in a relationship where the following occur: No concerns reported THRIVE Score: 0 AUDIT C Alcohol Use Questionnaire (AUDIT-C) 1. How often do you have a drink containing alcohol?: Never 3. How often do you have six or more drinks on one occasion?: Never Total Score: 0 Score Reviewed/Action Taken: Yes ODIN-7 AMB Questionnaire ODIN-7 Date ODIN - 7 assessed: 04/13/24 Feeling nervous, anxious, or on edge: 1 = Several days Not being able to stop or control worryin = Several days Worrying too much about different things: 1 = Several days Trouble relaxin = Several days Being so restless that it is hard to sit still: 1 = Several days Becoming easily annoyed or irritable: 1 = Several days Feeling afraid as if something awful might happen: 1 = Several days Total ODIN-7 score (0-4 normal; 5-9 mild; 10-14 moderate; 15-21 severe): 7 Source: Developed by Drs. Del Koch, Macie Aparicio, Jigar Roper and colleagues, with an educational sylvester from [employer]. ODIN-7 Assessment Billing ODIN-7 Assessment Tool: ODIN-7 Assessment 60621 Review of Systems Const Denies chills, Denies fatigue, Denies fever(s), Denies headache(s) and Denies weakness Eyes Denies change in vision ENT Denies dizziness, Denies headache(s), Denies hearing loss, Denies nasal c ongestion, Denies sinus pain, Denies sinus pressure and Denies sore throat Card Denies chest pain, Denies lightheadedness, Denies dyspnea and Denies other (palpitations) Resp Reports cough, Denies dyspnea and Denies wheezing GI Denies abdominal pain, Denies melena, Denies hematochezia, Denies change in bowel habits, Denies dyspepsia and Denies nausea Denies hematuria and Denies dysuria Musc Denies abnormal gait, Denies myalgias, Denies arthralgias, Denies numbness and Denies tingling Skin/Breast Denies rash, Denies unusual bruising and Denies wounds Neuro Denies abnormal gait, Denies dizziness, Denies headache(s), Denies memory loss, Denies numbness, Denies Sensory deficit (Neuro), Denies tingling and Denies weakness Psych Denies anxiety, Denies depression and Denies memory loss Endo Denies cold intolerance, Denies fatigue, Denies heat intolerance, Denies polydipsia and Denies polyuria Wilfredo/Lymph Denies easy bleeding and Denies easy bruising Aller/Immun Denies wheezing Physical exam (Primary Care) Vital Signs: Last Vital Signs Temp 97.7 F 04/13/24 09:00 Pulse 91 04/13/24 09:00 Resp 16 04/13/24 09:00 BP 100/60 04/13/24 09:00 Pulse Ox 98 04/13/24 09:00 Oxygen Delivery Method Room Air 04/13/24 09:00 BMI result Body Mass Index 22.5 Tobacco/Smoking Status: Tobacco use Status Tobacco use date assessed 04/13/24 04/13/24 09:04 Patient Tobacco Use Status Current someday Tobacco 04/13/24 09:04 e-Cigarette/Vaping Use Never Used 04/13/24 08:58 PHQ-9: PHQ-9 Score PHQ-9: Total score 7 04/13/24 09:20 Depression Screening Interpretation: Positive Thrive Assessment: Date of Thrive Assessment Date Thrive assessed 04/13/24 04/13/24 09:04 Currently or been in a relationship where the following occur: No concerns reported Const General: no acute distress, well developed, alert and awake Nutritional Appearance: well nourished Orientation/consciousness: patient oriented x3 HENMT Head: Yes normocephalic and Yes atraumatic Ears: hearing grossly normal bilaterally and TM's normal bilaterally General nose exam: Normal external nose present and Normal nares present Mouth: Normal oral and palatal mucosa present and moist mucous membranes Teeth and gingiva: dentition normal Throat: Yes posterior oropharynx normal Eyes General: appearance normal, both eyes and all related structures Pupils: Equal, round and reactive pupils present and Pupil accommodation reflex normal EOM: EOMs intact bilaterally Neck Neck: Yes normal visual inspection, Yes no lymphadenopathy and Yes trachea midline Thyroid: Thyroid normal Carotids: no bruits Lymphatic: no lymphadenopathy noted Chest Chest palpation & inspection: normal inspection of the chest Resp Other: Coarse breath sounds Effort & Inspection: normal respiratory effort Auscultation: clear to auscultation bilaterally Cardio Rate: regular rate Rhythm: regular rhythm Heart sounds: S1 normal heart sound present, S2 normal heart sound present, no gallops, no murmurs and no rubs Bruits: no abdominal aortic bruits and no carotid bruits GI Palpation (GI): No Abdominal aortic bruit present, Soft to palpation, nontender, No hepatosplenomegaly present and No Rebound tenderness present Auscultation: normal bowel sounds General: Yes no CVA tenderness Back/Spine/Pelvis Back: no CVA tenderness Cervical Spine: cervical ROM normal and No Cervical spine tenderness Thoracic/Lumbar Spine: thoraco-lumbar ROM normal, No pain with thoraco-lumbar ROM, No thoracic spinal tenderness and No lumbar spinal tenderness Skin Lesions: no lesions Rashes: no rashes Trauma: no lacerations or abrasions Wounds: no wounds Nails: normal Neuro General: patient oriented x3 Cranial nerves: Yes Equal, round and reactive pupils present Cognition (Neuro): normal cognition Gait exam (Neuro): Normal gait present Motor exam (neuro): 5/5 motor strength present throughout Sensory Exam: No Sensory deficit (Neuro) Deep tendon reflexes (DTR's): Right patellar reflex intensity grade: 2+ and Left patellar reflex intensity grade: 2+ Extrem General: Yes normal to inspection and No edema Psych Appearance: grossly normal Affect: normal affect Attitude: cooperative Thought process: Normal thought process present Assessment and Plan Assessment & Plan (1) Elevated fasting glucose: Code(s): R73.01 - Impaired fasting glucose Plan: Mildly?elevated?fasting?blood?sugar Will?recheck?this?along?with?an?A1c?test (2) Mild anemia: Code(s): D64.9 - Anemia, unspecified Plan: Previously?mild?anemia Recheck?CBC (3) Hypercholesterolemia: Code(s): E78.00 - Pure hypercholesterolemia, unspecified Plan: Mildly?elevated?LDL?cholesterol?and?I?encouraged?a?diet?lower?in?saturated?fats? and?cholesterol (4) Cough: Code(s): R05.9 - Cough, unspecified Plan: Patient?has?history?of?COPD?and?smoking?and?a?chronic?cough.??Also?has?a?history ?of?GERD Check?chest?x-ray (5) Low back pain: Code(s): M54.50 - Low back pain, unspecified Plan: Chronic?low?back?pain He?can?use?ibupro fen?but?do?not?exceed?recommended?doses.??Can?also?use?some?Tylenol?and?topicals .??Also?ice/heat (6) Smoker: Code(s): F17.200 - Nicotine dependence, unspecified, uncomplicated Plan: Encouraged?further?weaning/cessation?of?smoking.??Patient?is?down?to?about?1?cig arette?per?week Encouraged?him?to?quit (7) Screening for prostate cancer: Code(s): Z12.5 - Encounter for screening for malignant neoplasm of prostate Plan: PSA?was?within?normal?range Will?continue?annual?screening (8) GERD (gastroesophageal reflux disease): Code(s): K21.9 - Gastro-esophageal reflux disease without esophagitis Plan: Trial?omeprazole (9) Adult general medical exam: Code(s): Z00.00 - Encounter for general adult medical examination without abnormal findings Orders: Orders XR chest 2V Today F17.200 - Nicotine dependence, unspecified, uncomplicated, J44.9 - Chronic obstructive pulmonary disease, unspecified, R05.9 - Cough, unspecified Medications: New omeprazole 20 mg PO DAILY 90 caps 2RF 90 days Patient Instructions: 43-year-old?male?presents?for?an?extended?exam Encouraged?healthy?diet?with?active?lifestyle?and?plenty?of?exercise Coding Level of Care Code Est Pt Level 4 (03439) Diagnoses Elevated fasting glucose R73.01 Mild anemia D64.9 Hypercholesterolemia E78.00 Cough R05.9 Low back pain M54.50 Smoker F17.200 Screening for prostate cancer Z12.5 GERD (gastroesophageal reflux disease) K21.9 Adult general medical exam Z00.00 Additional Codes ODIN-7 Assessment Billing - ODIN-7 Assessment Tool: ODIN-7 Assessment 87701 ([id number])
[2024-04-13 09:00] VITALS: BP 100/60; PULSE 91; RESP 16; TEMP 36.5; O2SAT 98; BMI 22.5
== END 2024-04-13 09:37 | disposition home or self-care (01) ==
PROVIDERS: Visit Provider Family Medicine
DX: R73.01 Impaired fasting glucose (principal); D64.9 Anemia, unspecified; E78.00 Pure hypercholesterolemia, unspecified; R05.9 Cough, unspecified; M54.50 Low back pain, unspecified; F17.200 Nicotine dependence, unspecified, uncomplicated; Z12.5 Encounter for screening for malignant neoplasm of prostate; K21.9 Gastro-esophageal reflux disease without esophagitis
CPT/HCPCS: 99214

== ENCOUNTER 2024-05-13 07:55 | Outpatient (REF) | payer OTHER, SELFPAY ==
--- NOTE | ~2024-05-13 | XR_ITS ---
EXAMINATION: XR CHEST CLINICAL INFORMATION: Cough COMPARISON: January 01, 2023 TECHNIQUE: 2 views of the chest were obtained. FINDINGS: No significant abnormality is noted involving the heart, lungs, mediastinum, bony thorax or soft tissues. XR/XR chest 2V IMPRESSION: No radiographic evidence of acute cardiopulmonary disease. Electronically signed by: Stacie Fulton MD 05/13/2024 11:28 AM EDT
[2024-05-13 08:42] LABS: MANUAL DIFF FLAG NO
[2024-05-13 09:50] LABS: Basophils Percent Auto 0.5 % (0-2); Eosinophils Absolute Auto 0.2 X10*3/uL (0.0-0.4); Eosinophils Percent Auto 2.3 % (0-4); Hematocrit 43.5 % (42.0-52.0); Hemoglobin 14.7 g/dl (14.0-18.0); Imm Gran Abs Auto 0.02 X10*3/uL (0.00-0.03); Imm Gran Pct Auto 0.3 % (0.0-0.4); Lymphocytes Absolute Auto 1.4 X10*3/uL (1.2-4.9); Lymphocytes Percent Auto 19.3 % (20-40); Mean Corpuscular HGB Conc 33.8 g/dl (31.0-36.0); Mean Corpuscular Hemoglobin 32.1 pg (27.0-33.0); Mean Platelet Volume 9.4 fL (9.4-12.4); Monocytes Absolute Auto 0.8 X10*3/uL (0.1-1.2); Monocytes Percent Auto 10.4 % (2-11); Neutrophils Percent Auto 67.2 % (45-73); Platelet Count 197 X10*3/uL (160-400); Red Blood Count 4.58 X10*6/uL (4.60-5.80); Red Cell Distribution Width 14.6 % (11.0-16.0); White Blood Count 7.5 X10*3/uL (4.8-10.8)
[2024-05-13 09:59] LABS: Estimated Average Glucose 97 mg/dL
[2024-05-13 10:08] LABS: Alanine Aminotransferase 15 U/L (0-40); Albumin Level 4.4 g/dL (3.5-5.0); Alkaline Phosphatase 78 U/L (39-117); Anion Gap 10 (12-20); Aspartate Amino Transferase 22 U/L (5-37); Bilirubin Total 0.3 mg/dL (0.0-1.0); Blood Urea Nitrogen 11 mg/dL (9-16); Calcium 9.1 mg/dL (8.4-10.2); Carbon Dioxide 25 mmol/L (22-29); Chloride 110 mmol/L (96-108); Estimated Glomerular Filt Rate > 60; Glucose Fasting 88 mg/dL (60-99); Potassium 4.2 mmol/L (3.3-5.1); Sodium 141 mmol/L (135-145); Total Protein 7.9 g/dL (6.5-8.0)
== END 2024-05-13 07:56 | disposition home or self-care (01) ==
LOC: HO.XRAY 07:55
PROVIDERS: PCP Family Medicine; Visit Provider Family Medicine
DX: Z00.00 Encounter for general adult medical examination without abnormal findings (principal); R73.01 Impaired fasting glucose; D64.9 Anemia, unspecified; R05.9 Cough, unspecified; F17.200 Nicotine dependence, unspecified, uncomplicated; J44.9 Chronic obstructive pulmonary disease, unspecified
CPT/HCPCS: 36415; 71046; 80053; 83036; 85025

== ENCOUNTER 2024-05-18 10:37 | Outpatient (AMB) | payer OTHER, SELFPAY ==
--- NOTE | 2024-05-18 10:50 | A.OFFPC_ITS ---
Vital Signs 05/18/24 10:51 Height 5 ft 6 in Weight 135 lb 4 oz BMI 21.8 BP 110/50 L Blood Pressure Location Lt brachial Position Sitting Respiration 12 Pulse 97 Pulse Source Pulse Oximeter Temp 99.4 F Temp Source Oral Pulse Oximetry (%) 97 Oxygen Delivery Method Room Air Intake Visit Reasons: f/u labs, chest x-ray Intake Note: lab and xray review Allergies No Known Allergies Allergy (Verified 05/18/24 10:50) Medication List - Last Reconciled 05/18/24 by Dipak Moseely MD albuterol sulfate 90 mcg/actuation 2 puffs inhalation Q4-6H PRN 30 days betamethasone valerate 0.1% 1 appl topical BID PRN 10 days cetirizine (All Day Allergy (cetirizine)) 10 mg PO DAILY PRN 30 days cyclobenzaprine 10 mg PO TID PRN ibuprofen 800 mg PO Q8H PRN ibuprofen 800 mg PO Q8H PRN 30 days omeprazole 20 mg PO DAILY 90 days umeclidinium 62.5 mcg/actuation (Incruse Ellipta) 1 inh inhalation DAILY 30 days Tobacco use date assessed: 04/13/24 Dental Screening Dental Screen Date: 04/13/24 HPI f/u labs, chest x-ray HPI Details Pt presents to review additional lab work for history of mild anemia and also elevated fasting blood sugar. Also f/u chronic cough/patient is a smoker with hx of COPD. Checking x-ray. Prior chest x-ray sometime ago showed possible pneumonitis. Labs drawn 05/13/24. Reviewed labs with pt. Liver enzymes are fine. RBC mildly low at 4.58 but otherwise anemia resolved. A1c 5.0%. Chest x-ray 05/13/24 was fine. Pt continues to work on trying to quit smoking. PFSH Medical History ADD (attention deficit disorder) ADHD Asthma COPD (chronic obstructive pulmonary disease) Smoker Family History Mother Mental health disorder Substance abuse Brother Mental health disorder Substance abuse Maternal Grandmother Mental health disorder Maternal Aunt Substance abuse Social History (Updated 04/13/24 @ 08:58 by Jonathan Lewis MA) Housing: House Alcohol intake: never Patient Tobacco Use Status: Current someday Tobacco user Cigarettes Per Day: 1 e-Cigarette/Vaping Use: Never Used Second Hand Smoke Exposure: No Substance Use Type: Marijuana service: No Current occupational status: employed 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 Del Koch, Macie Aparicio, Jigar Roper and colleagues, with an educational sylvester from [employer]. Review of Systems Const Denies chills, Denies fatigue, Denies fever(s), Denies headache(s) and Denies weakness ENT Denies dizziness and Denies headache(s) Card Denies dyspnea Resp Denies cough, Denies dyspnea, Denies wheezing and Denies other (shortness of b reath) Musc Denies numbness and Denies tingling Neuro Denies dizziness, Denies headache(s), Denies numbness, Denies tingling and Denies weakness Psych Denies anxiety and Denies depression Endo Denies fatigue Aller/Immun Denies wheezing Physical exam (Primary Care) Vital Signs: Last Vital Signs Temp 99.4 F 05/18/24 10:51 Pulse 97 05/18/24 10:51 Resp 12 05/18/24 10:51 BP 110/50 L 05/18/24 10:51 Pulse Ox 97 05/18/24 10:51 Oxygen Delivery Method Room Air 05/18/24 10:51 BMI result Body Mass Index 21.8 Tobacco/Smoking Status: Tobacco use Status Tobacco use date assessed 04/13/24 05/18/24 10:53 Patient Tobacco Use Status Current someday Tobacco 05/18/24 10:53 e-Cigarette/Vaping Use Never Used 05/18/24 10:53 Thrive Assessment: Date of Thrive Assessment Date Thrive assessed 04/13/24 05/18/24 10:53 Const General: well developed; No acute distress Nutritional Appearance: well nourished Orientation/consciousness: patient oriented x3 HENMT Head: Yes normocephalic and Yes atraumatic Eyes General: appearance normal, both eyes and all related structures Pupils: Equal, round and reactive pupils present EOM: EOMs intact bilaterally Resp Effort & Inspection: normal respiratory effort Neuro General: patient oriented x3 and gait normal Cranial nerves: Yes Equal, round and reactive pupils present Psych Affect: normal affect Assessment and Plan Assessment & Plan (1) Mild anemia: Code(s): D64.9 - Anemia, unspecified Plan: Resolved (2) Smoker: Code(s): F17.200 - Nicotine dependence, unspecified, uncomplicated Plan: Patient?is?actively?working?on?weaning?down I?encouraged?continued?weaning?and?cessation Patient?had?had?a?chest?x-ray?a?year?ago?that?suggested?pneumonitis. Repeat?chest?x-ray?was?normal (3) Elevated fasting glucose: Code(s): R73.01 - Impaired fasting glucose Plan: Repeat?fasting?blood?sugar?was?within?normal?range. A1c?5.0?was?within?normal?range Coding Level of Care Code Est Pt Level 4 (03033) Diagnoses Mild anemia D64.9 Smoker F17.200 Elevated fasting glucose R73.01
[2024-05-18 10:51] VITALS: BP 110/50; PULSE 97; RESP 12; TEMP 37.4; O2SAT 97; BMI 21.8
== END 2024-05-18 11:37 | disposition home or self-care (01) ==
PROVIDERS: Visit Provider Family Medicine
DX: D64.9 Anemia, unspecified (principal); F17.200 Nicotine dependence, unspecified, uncomplicated; R73.01 Impaired fasting glucose

== ENCOUNTER → 2024-05-18 10:37 | Outpatient (BNVA) | payer OTHER, SELFPAY | PROVIDERS: Visit Provider Family Medicine | DX: D64.9 Anemia, unspecified (principal); R73.01 Impaired fasting glucose; F17.200 Nicotine dependence, unspecified, uncomplicated; Z71.6 Tobacco abuse counseling | CPT/HCPCS: 99212 ==

== ENCOUNTER 2024-10-03 12:35 | Outpatient (AMB) | payer OTHER, SELFPAY ==
--- NOTE | 2024-10-03 14:14 | MHC.OFFWIV ---
Intake Vital Signs 10/03/24 14:17 Weight 144 lb BP 120/84 Blood Pressure Location Lt brachial Position Sitting Pulse 77 Pulse Source Pulse Oximeter Temp 98 F Temp Source Oral Pulse Oximetry (%) 97 Oxygen Delivery Method Room Air Intake Visit Reasons: EP-lt side chin swollen Intake Note: Patient here for left side of chin swelling that has been present since yesterday. Patient Tobacco Use Status: Current someday Tobacco user Allergies No Known Allergies Allergy (Verified 10/03/24 14:17) Do you need a note to return to daycare/school/sports/work: No HPI HPI Comments History of Present Illness Details This is a 44-year-old male with no stated past medical history presenting for evaluation of left-sided chin swelling he has had for the past 1 day. Patient states last week he nicked his chin while shaving with a disposable razor. Patient noticed swelling thereafter and used tweezers to remove an ingrown hair yesterday. Patient states that the swelling persists. He noted brown colored discharge from his chin this morning but denies having any fevers, chills, dental pain or difficulty swallowing. Patient has taken ibuprofen only without relief of his discomfort. [facility] Medical History ADD (attention deficit disorder) ADHD Asthma COPD (chronic obstructive pulmonary disease) Smoker Family History Mother Mental health disorder Substance abuse Brother Mental health disorder Substance abuse Maternal Grandmother Mental health disorder Maternal Aunt Substance abuse Social History (Updated 04/13/24 @ 08:58 by Jonathan Lewis [facility]) Housing: House Alcohol intake: never Patient Tobacco Use Status: Current someday Tobacco user Cigarettes Per Day: 1 e-Cigarette/Vaping Use: Never Used Second Hand Smoke Exposure: No Substance Use Type: Marijuana service: No Current occupational status: employed 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 Cognitive needs: No Hearing needs: No Vision needs: No Review of Systems Const All systems reviewed & are unremarkable except as noted in HPI and below Denies chills and Denies fever(s) Eyes Reports no additional complaints ENT Reports no additional complaints Card Reports no additional complaints Resp Reports no additional complaints GI Reports no additional complaints Reports no additional complaints Musc Reports no additional complaints Skin/Breast Reports lesions (chin) and Reports skin swelling (chin) Neuro Reports no additional complaints Psych Reports no additional complaints Endo Reports no additional complaints Wilfredo/Lymph Reports no additional complaints Aller/Immun Reports no additional complaints Physical Exam Vital Signs: Last Vital Signs Temp 98 F 10/03/24 14:17 Pulse 77 10/03/24 14:17 BP 120/84 10/03/24 14:17 Pulse Ox 97 10/03/24 14:17 Oxygen Delivery Method Room Air 10/03/24 14:17 Patient is afebrile. Const General: cooperative, healthy appearing, comfortable, no acute distress, well developed, alert, awake and Physically active Nutritional Appearance: average body habitus Orientation/consciousness: patient oriented x3 Limitations: no limitations Skin Lesions: lesion noted (excoriated pustule left aspect of chin with surrounding erythema and edema) Neuro General: patient oriented x3 Psych Appearance: grossly normal Mental Status: mental status grossly normal Insight: Good insight present (Psych) Judgement: Good judgement present (Psych) Assessment & Plan Assessment & Plan (1) Cellulitis of chin: Comment: There is no fluctuance or discharge noted upon clinical examination however there is tenderness, edema and erythema. Patient will be discharged home with antibiotic therapy. Code(s): L03.211 - Cellulitis of face Plan: Warm moist compresses 4 times daily; doxycycline b.i.d. x7 days. Patient will follow up with his primary care provider next week if his symptoms have not resolved. Medications: New doxycycline hyclate 100 mg PO BID 14 caps 0RF Coding Level of Care Code Est Pt Level 3 (30907) Diagnoses Cellulitis of chin L03.211 Time Spent (min) 20
[2024-10-03 14:17] VITALS: BP 120/84; PULSE 77; TEMP 36.6; O2SAT 97
== END 2024-10-03 14:40 | disposition home or self-care (01) ==
PROVIDERS: Visit Provider Physician Assistant
DX: L03.211 Cellulitis of face (principal)

== ENCOUNTER → 2024-10-03 12:35 | Outpatient (BNVA) | payer OTHER, SELFPAY | DX: L03.211 Cellulitis of face (principal) | CPT/HCPCS: 99212 ==

== ENCOUNTER 2024-12-23 18:35 | Inpatient (IN) | payer OTHER, SELFPAY ==
--- NOTE | ~2024-12-23 | CT_ITS ---
CLINICAL HISTORY: hand swelling. Abscess? tenosynovititis? CT right hand with intravenous contrast Comparison: CR - XR HAND RT MIN 3V - 12/23/24 19:23 EDT Findings: Subcutaneous edema predominantly around the metacarpals and thenar eminence. No soft tissue gas or abscess. No evidence of osteomyelitis. No acute fracture or dislocation. Limited evaluation for tenosynovitis on CT. Tendons appear normal in caliber. IMPRESSION: Subcutaneous edema predominantly around the metacarpals and thenar eminence. No soft tissue gas or abscess. Limited evaluation for tenosynovitis on CT. Tendons appear normal in caliber. This document has been electronically signed by: Mima Ren MD on 12/24/2024 01:16:14
--- NOTE | ~2024-12-23 | US_ITS ---
CLINICAL HISTORY: right hand swelling. DVT? Venous duplex ultrasound right upper extremity Comparison: CR - XR HAND RT MIN 3V - 12/23/24 19:23 EDT Findings: Accessible deep venous segments are fully compressible with normal Doppler color flow and spectral tracings. Soft tissue edema. IMPRESSION: 1. Negative for right upper extremity deep vein thrombosis. This document has been electronically signed by: Pati Shipley MD on 12/23/2024 23:05:45
--- NOTE | ~2024-12-23 | XR_ITS ---
CLINICAL HISTORY: pain, swelling RIGHT HAND X-RAYS COMPARISON: None. FINDINGS: A total of 3 views of the right hand were obtained. There is no evidence of an acute fracture or dislocation. There are no bony destructive changes. IMPRESSION: 1. No acute disease. This document has been electronically signed by: Jordy Godoy M.D. on 12/24/2024 03:24:54
[2024-12-23 18:38] VITALS: BP 121/75; PULSE 92; RESP 18; TEMP 37.3; O2SAT 98; BMI 21.6
--- NOTE | 2024-12-23 18:43 | ED_ITS ---
HPI - Extremity Problem General Chief complaint: Extremity Injury, Lower Stated complaint: swollen right hand and elbow Time Seen by Provider: 12/23/24 20:26 Source: patient Mode of arrival: ambulatory Limitations: no limitations History of Present Illness ED Provider: Benito Patricio HPI Narrative: 44 yold male with no pmh presents to the ED for Right hand swelling since yesterday. Patient states yesterday was working with his nephew picked up plastic Aks and then had a blister in his hand which caused a blister on dorsal aspect of hand which he scratched. Later than night he started having swelling of the hand and pain. Patient states chills but no fever. Patient denies any history of IV drug use or blunt trauma. Related Data Home Medications ?Medication ?Instructions ?Recorded ?Confirmed albuterol sulfate 90 mcg/actuation 2 puff inhalation Q6H PRN COPD 12/24/24 12/24/24 aerosol inhaler Previous Rx's ?Medication ?Instructions ?Recorded ibuprofen 800 mg tablet 800 mg PO Q8H PRN pain #20 tabs 02/06/23 umeclidinium 62.5 mcg/actuation 1 inh inhalation DAILY 30 days #30 04/15/23 blister powder for inhalation ea (Incruse Ellipta) cetirizine 10 mg tablet (All Day 10 mg PO DAILY PRN allergy 03/27/24 Allergy (cetirizine)) symptoms 30 days #30 tabs Allergies Allergy/AdvReac Type Severity Reaction Status Date / Time No Known Allergies Allergy Verified 12/23/24 18:38 Review of Systems 2 Review of Systems: Right hand swelling/pain Yes all other systems are reviewed and are negative [facility] Past Medical History Medical History Smoker ADD (attention deficit disorder) ADHD Asthma COPD (chronic obstructive pulmonary disease) Family History Family History Mother Mental health disorder Substance abuse Brother Mental health disorder Substance abuse Maternal Grandmother Mental health disorder Maternal Aunt Substance abuse Social History Social History Household Members: None Housing: Apartment Do you presently have visiting nurse or other home services: No Alcohol intake: never Patient Tobacco Use Status: Current everyday Tobacco user Tobacco use type: Cigarette Cigarette Packs Per Day: 1 Cigarettes Per Day: 20.0 e-Cigarette/Vaping Use: Never Used Second Hand Smoke Exposure: No Substance Use Type: Marijuana service: No Current occupational status: employed 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 Cognitive needs: No Hearing needs: No Vision needs: No Physical Exam 2 Vital Signs: Vital Signs: Last Vital Signs Temp 99.8 F 12/24/24 19:26 Pulse 85 12/24/24 19:26 Resp 18 12/24/24 19:26 BP 105/66 12/24/24 19:26 Pulse Ox 95 12/24/24 19:26 O2 Del Method Room Air 12/24/24 19:26 BMI result Body Mass Index 21.6 Const: General: cooperative, healthy appearing, comfortable, no acute distress, well developed, alert, awake and Physically active O rientation/consciousness: patient oriented x3 HEENT: Head: Yes normal to inspection, Yes No palpable skull fracture present, Yes normocephalic and Yes atraumatic Eyes: General: appearance normal, both eyes and all related structures Neck: Neck: Yes normal visual inspection, Yes full ROM, Yes no lymphadenopathy, Yes no meningeal signs, Yes trachea midline, Yes supple, No anterior neck swelling and No tender Chest: Chest palpation & inspection: normal inspection of the chest and normal palpation of entire chest wall Resp: Effort & Inspection: normal respiratory effort and able to speak in complete sentences Auscultation: clear to auscultation bilaterally Cardio: Jugular venous distension: no JVD Heart sounds: S1 normal heart sound present and S2 normal heart sound present GI: Inspection: Yes normal to inspection Palpation (GI): Soft to palpation, not firm, nontender, no guarding and not rigid : General: Yes no CVA tenderness Back/Spine/Pelvis: Back: no CVA tenderness and No back tenderness Skin: General skin exam: no rashes or lesions noted, elasticity normal and turgor normal Neuro: General: patient oriented x3, gait normal, tone normal, moves all extremities, Normal light touch and pain sensation, no meningeal signs, no focal motor deficits, CN's II-XI intact bilaterally and normal sensation to monofilament Extrem: Other: Psych: Appearance: grossly normal, well kempt and not disheveled Course Course Course Narrative: This is an RME performed by Maxx Amado CNP: Additional HPI, ROS, PE not included below will be deferred to primary provider. Patient is a 44-year-old male who presents emergency department for evaluation, he states proximally 2 weeks ago he noticed having numbness at the area of his right elbow that slowly has progressed down into the right hand. He states a few days ago he was helping his family member with some construction type work, he then noticed that he developed a blister to the palmar aspect of the right hand at the base of the 2/3 digit and has since had progressive pain and swelling to the hand. He denies any known/overt puncture or injury. Plan: Serum labs, XR of the hand Medications Administered Generic Name Dose Route Start Last Admin Trade Name Freq PRN Reason Stop Dose Admin Ceftriaxone Sodium 1 gm 12/24/24 02:00 12/24/24 21:22 Ceftriaxone Sodium 1 Gm Vial IVPUSH 1 gm BEDTIME CARMENCITA Administration Enoxaparin Sodium 40 mg 12/24/24 15:00 12/24/24 16:03 Enoxaparin Sodium 40 Mg/0.4 Ml Syringe SUBCUT 40 mg Q24H CARMENCITA Administration Vancomycin HCl 1,250 mg/ 250 mls @ 166.667 mls/hr 12/24/24 08:00 12/24/24 21:15 Sodium Chloride IV Infused Q12H CARMENCITA Infusion Ibuprofen 400 mg 12/24/24 17:00 12/24/24 16:02 Ibuprofen 400 Mg Tablet PO 400 mg TIDWM CARMENCITA Administration Morphine Sulfate 4 mg 12/24/24 00:05 12/24/24 18:20 Morphine Sulfate 4 Mg/Ml Cartridge IVPUSH 4 mg Q4H PRN Administration Pain, Severe (Pain Scale 7-10) Protocol Omeprazole 20 mg 12/24/24 14:50 12/24/24 16:03 Omeprazole 20 Mg Capsule.Dr PO Not Given DAILY@0630 CARMENCITA Sodium Chloride 3 ml 12/24/24 00:00 12/24/24 21:22 0.9 % Sodium Chloride Flush 3 Ml Syringe IVFLUSH 3 ml QSHIFT CARMENCITA Administration Discontinued Medications Generic Name Dose Route Start Last Admin Trade Name Freq PRN Reason Stop Dose Admin Vancomycin HCl 2,000 mg in 500 mls @ 250 mls/hr 12/23/24 20:56 12/24/24 00:19 Vancomycin/Ns IV 12/23/24 22:55 Infused ONCE ONE Infusion Piperacillin Sod/Tazobactam 50 mls @ 100 mls/hr 12/23/24 20:56 12/23/24 21:48 Sod 3.375 gm/ Sodium Chloride IV 12/23/24 21:25 Infused ONCE ONE Infusion Lactated Ringer's 1,000 mls @ 999 mls/hr 12/23/24 23:30 12/24/24 01:30 Lr IV 12/24/24 00:30 Infused .Q1H1M CARMENCITA Infusion Iohexol 85 ml 12/24/24 00:00 12/24/24 00:01 Iohexol 350 Mg/Ml 100 Ml Infus..Btl IV 12/24/24 00:01 85 ml ONCE ONE Administration Medical Decision Making Medical Decision Making [facility] Narrative: 44-year-old male presents to ED for right hand swelling after popping a blister that occurred yesterday. Patient denies any history of IV drug use or placing needle and hand. Patient denies being burned by any hot liquid. Physical exam negative for any forearm or humerus swelling. Positive only for hand swelling without any profuse pus discharge. ESR CRP elevated. Uric acid normal. Was started on antibiotics. Ultrasound ordered to rule out DVT. Treating as hand cellulitis 11;37pm: Patient's end up having a fever during ED visit. Patient was she had asked cellulitis. Case presents to hospitalist for admission for head cellulitis. CT scan pending. Patient well-appearing. Case accepted by Dr. Winters. Ultrasound negative for DVT Differential Diagnosis Differential Diagnoses: The differential diagnosis associated with the presentation includes (Hand cellulitis, DVT) Admission/Observation Consideration of admission/observation: Escalation of care including admission/observation considered Consult Healthcare Provider Management of the patient was discussed with: Hospitalist (Dr. Winters Hospitalist) Lab Data [facility] Lab Attestation statement: I reviewed the patient's lab results. 12/24/24 06:19 12/24/24 06:19 Labs: Lab Results 12/23/24 12/23/24 Range/Units 18:49 21:05 WBC 13.0 H (4.8-10.8) X10*3/uL RBC 4.09 L (4.60-5.80) X10*6/uL Hgb 13.5 L (14.0-18.0) g/dl Hct 38.4 L (42.0-52.0) % MCV 93.9 (80.0-98.0) fL MCH 33.0 (27.0-33.0) pg MCHC 35.2 (31.0-36.0) g/dl RDW 13.6 (11.0-16.0) % Plt Count 182 (160-400) X10*3/uL MPV 8.9 L (9.4-12.4) fL Immature Gran % (Auto) 0.4 (0.0-0.4) % Neut % (Auto) 82.0 H (45-73) % Lymph % (Auto) 7.9 L (20-40) % [place] % (Auto) 8.5 (2-11) % Eos % (Auto) 0.9 (0-4) % Baso % (Auto) 0.3 (0-2) % Lymph # (Auto) 1.0 L (1.2-4.9) X10*3/uL [place] # (Auto) 1.1 (0.1-1.2) X10*3/uL Eos # (Auto) 0.1 (0.0-0.4) X10*3/uL Baso # (Auto) 0.0 (0.0-0.2) X10*3/uL Abs Immat Gran (auto) 0.05 H (0.00-0.03) X10*3/uL Absolute Neuts (auto) 10.6 H (2.0-8.3) x10*3/uL Absolute Nucleated RBC 0.000 (0.0-0.012) X10*3/uL Nucleated RBC % (auto) 0.0 (0.0-0.2) /100WBC ESR 16 H (0-15) MM/HR Sodium 140 (135-145) mmol/L Potassium 3.9 (3.3-5.1) mmol/L Chloride 108 (96-108) mmol/L Carbon Dioxide 22 (22-29) mmol/L Anion Gap 14 (12-20) BUN 13 (9-16) mg/dL Creatinine 0.66 (0.5-1.4) mg/dL Estim Creat Clear Calc 125.3 Estimated GFR > 60 Random Glucose 100 (60-115) mg/dL Lactic Acid 0.8 (0.5-2.0) mmol/L Uric Acid 4.2 (3.4-7.0) mg/dL Calcium 8.7 (8.4-10.2) mg/dL Total Bilirubin 0.3 (0.0-1.0) mg/dL AST 23 (5-37) U/L ALT 13 (0-40) U/L Alkaline Phosphatase 75 (39-117) U/L C-Reactive Protein 2.05 H (< or = 0.50) mg/dL Total Protein 7.2 (6.5-8.0) g/dL Albumin 4.2 (3.5-5.0) g/dL Independent Interpretation I performed an independent interpretation of an: Plain X-Ray and Ultrasound Radiology Impression Discussion of test interpretation with radiology: I have reviewed the radiologist's reading. Discharge Plan Discharge Clinical Impression: Hand swelling Patient Disposition: Admitted As Inpatient Interventions: Admission Worksheet (ED) Last Done: 12/24/24 03:52 Discharge Date/Time: 12/24/24 04:42
[2024-12-23 18:53] LABS: MANUAL DIFF FLAG NO
[2024-12-23 18:55] LABS: Basophils Percent Auto 0.3 % (0-2); Eosinophils Absolute Auto 0.1 X10*3/uL (0.0-0.4); Eosinophils Percent Auto 0.9 % (0-4); Hematocrit 38.4 % (42.0-52.0); Hemoglobin 13.5 g/dl (14.0-18.0); Imm Gran Abs Auto 0.05 X10*3/uL (0.00-0.03); Imm Gran Pct Auto 0.4 % (0.0-0.4); Lymphocytes Percent Auto 7.9 % (20-40); Mean Corpuscular HGB Conc 35.2 g/dl (31.0-36.0); Mean Corpuscular Volume 93.9 fL (80.0-98.0); Mean Platelet Volume 8.9 fL (9.4-12.4); Monocytes Absolute Auto 1.1 X10*3/uL (0.1-1.2); Monocytes Percent Auto 8.5 % (2-11); Neutrophils Absolute Auto 10.6 x10*3/uL (2.0-8.3); Platelet Count 182 X10*3/uL (160-400); Red Blood Count 4.09 X10*6/uL (4.60-5.80); Red Cell Distribution Width 13.6 % (11.0-16.0)
[2024-12-23 19:11] LABS: Alanine Aminotransferase 13 U/L (0-40); Albumin Level 4.2 g/dL (3.5-5.0); Alkaline Phosphatase 75 U/L (39-117); Anion Gap 14 (12-20); Aspartate Amino Transferase 23 U/L (5-37); Bilirubin Total 0.3 mg/dL (0.0-1.0); Blood Urea Nitrogen 13 mg/dL (9-16); C Reactive Protein 2.05 mg/dL (< or = 0.50); Calcium 8.7 mg/dL (8.4-10.2); Carbon Dioxide 22 mmol/L (22-29); Chloride 108 mmol/L (96-108); Creatinine Clr Calc Pharmacy 125.3; Estimated Glomerular Filt Rate > 60; Glucose Random 100 mg/dL (60-115); Potassium 3.9 mmol/L (3.3-5.1); Sodium 140 mmol/L (135-145); Total Protein 7.2 g/dL (6.5-8.0)
[2024-12-23 19:31] LABS: Erythrocyte Sedimentation Rate 16 MM/HR (0-15)
--- OUTSIDE RECORDS SUMMARY | 2024-12-23 20:22 | XMS_ITS | Clinical Summary ---
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 Name Role Phone Unavailable Primary Care Provider Unavailabl e Source Comments PLEASE NOTE, if this patient is a minor, it may be UNLAWFUL to discuss sensitive information that is contained in these records (such as FAMILY PLANNING, MENTAL HEALTH or SUBSTANCE ABUSE) with the minor patient's parent or other person without the patient's specific authorization.[facility] Allergies No known active allergies Medications fluoride, sodium, (DENTAGEL) 1.1 % gelIndications:Saurabh givens Place in mouth once daily for 30 days 56 g 2 11/15/2023 Active Active Problems No known active problems Social History Tobacco Use Types Packs/Day Years Used Date Smoking Tobacco: Never Assessed Social Connections Answer Date Recorded Connectedness 0 05/06/2024 Financial Resource Strain Answer Date R ecorded Financial Resource Strain 0 2022 Stress Answer Date Recorded Stress 0 11/30/2022 Physical Activity Answer Date Recorded Physical Activity 0 11/30/2022 Food Insecurity Answer Date Recorded Food 0 05/18/2024 Transportation Needs Answer Date Record ed Transportation 0 11/30/2022 Housing Stability Answer Date Recorded Housing 0 11/30/2022 Safety and Environment Answer Date Khang rded Safety 0 11/30/2022 Utilities Answer Date Recorded Utilities 0 11/30/2022 Employment Answer Date Recorded Stress 0 05/06/2024 Sex and Gender Information Value Date Recorded Sex Assigned at Not on file Legal Sex Male 5:59 AM PDT Gender Identity Not on file Sexual Orientation Not on file Last Filed Vital Signs Vital Sign Reading Time Taken Comments Blood Pressure 133/82 12/13/2023 1:13 PM EDT Pulse 78 12/13/2023 1:13 PM EDT Temperature - - Respiratory Rate - - Oxygen Saturation - - Inhaled Oxygen Concentration - - Weight - - Height - - Body Mass Index - - Plan of Treatment Health Maintenance Due Date Last Done Comments Anxiety Screening 1982 Diabetes Screening 1982 Hepatitis C Screening 1982 Lipid Screening 1982 Tobacco Screening 1982 HIV Screening 1997 Imm-DTaP/Tdap/Td (1 - Tdap) 2001 Imm-Hepatitis B (1 of 3 - 19 + 3-dose series) 2001 [id number] ( - 2023- season) 2024 Imm-Influenza (#1) 2024 Alcohol and Drug Screen 08/23/2024 Depression Annual Screen 08/23/2024 Dental BW 11/16/2024 11/15/2023, 11/30/2022 Dental Examination 11/16/2024 11/15/2023, 11/30/2022 Dental Perio Charting 11/16/2024 11/15/2023 Dental Prophy 11/16/2024 11/15/2023 Hypertension Screening (#1) 12/12/2024 Dental FMX/Pano 12/03/2027 11/30/2022 Procedures Procedure Name Priority Date/Time Associated Diagnosis Comments COMP PERIODONTAL EVALUATION - NEW/EST PATIENT Routine 11/15/2023 1:00 PM EDT Encounter for dental examination BITEWINGS - FOUR RADIOGRAPHIC IMAGES Routine 11/15/2023 1:00 PM EDT Encounter for dental examination Full PROPHYLAXIS - ADULT Routine 024 1:00 PM EDT Encounter for dental examination Full PERIODIC ORAL EVALUATION ESTABLISHED PATIENT Routine 11/15/2023 1:00 PM EDT Encounter for dental examination Full INTRAORAL - COMP SERIES OF RADIOGRAPHIC IMAGES Routine 11/30/2022 2:20 PM EDT Caries Encounter for dental examination and cleaning with abnormal findings from Last 3 Months or Most Recently Relevant to Health Maintenance [place]
[2024-12-23 20:42] VITALS: BP 124/79; PULSE 85; RESP 16; TEMP 37.6; O2SAT 98
[2024-12-23 21:09] LABS: Uric Acid 4.2 mg/dL (3.4-7.0)
[2024-12-23 21:29] LABS: Lactic Acid 0.8 mmol/L (0.5-2.0)
[2024-12-23] MEDS: Piperacillin Sodium/Tazobactam 3.375 GM in 0.9 % Sodium Chloride 50 ML IV (21:39)
[2024-12-23] MEDS: vancomycin/NS 2,000 MG/500 ML PLAST..BAG 250 MG IV (21:48)
[2024-12-23 21:51] VITALS: BP 118/69; PULSE 85; RESP 16; TEMP 37.6; O2SAT 100
[2024-12-23 22:00] VITALS: TEMP 38.3
--- NOTE | 2024-12-23 22:00 | PC.NURSE ---
pt head felt warm oral temp and rectal temp taken after temporal was 102.6. pt was laying on a wool jacket. temps recorded. and provider walter made aware.
[2024-12-23 22:18] VITALS: BP 110/73; PULSE 74; O2SAT 98
--- NOTE | 2024-12-23 23:26 | P.HPHOSP_ITS ---
History of Present Illness Date of Service: 12/23/24 Chief Complaint: Hand infection This is a 44-year-old male with pertinent history of tobacco use disorder, COPD not on home oxygen, gastroesophageal reflux disease who presents to the emergency department for evaluation of hand swelling and pain. Patient states he he was working outside and helping his nephew when he developed a blister 1 day prior to presentation. Patient popped the blister and noticed that his right hand had developed swelling. His symptoms have been progressive over the last 24 hours. Has associated redness and pain with movement of right hand fingers. He is unable to make a fist due to pain and swelling. This has never happened before. Denies IV drug use or alcohol use. Admits cigarette smoking every day. No fever, chills, chest pain, palpitations, shortness of breath, abdominal pain, changes in urinary or bowel habits. In the emergency department, patient was found to be septic and initiated on empiric IV antibiotics. Imaging with subcutaneous edema predominantly around the metacarpals and thenar eminence. Review of Systems 2 Constitutional: Constitutional: Reports no additional constitutional complaints Cardiovascular: Cardiovascular: Reports no additional cardiovascular complaints Respiratory: Respiratory: Reports no additional respiratory complaints Gastrointestinal: Gastrointestinal: Reports no additional gastrointestinal complaints Genitourinary: Genitourinary: Reports no additional male genitourinary complaints Musculoskeletal: Musculoskeletal: Reports arthralgias and Reports joint swelling [facility] Medical History Smoker ADD (attention deficit disorder) ADHD Asthma COPD (chronic obstructive pulmonary disease) Family History Mother Mental health disorder Substance abuse Brother Mental health disorder Substance abuse Maternal Grandmother Mental health disorder Maternal Aunt Substance abuse Social History Housing: House Alcohol intake: never Patient Tobacco Use Status: Current everyday Tobacco user Cigarettes Per Day: 1 Smoked in Last 30 Days: Yes e-Cigarette/Vaping Use: Never Used Second Hand Smoke Exposure: No Use of substances other than those prescribed or required for medical reasons: Yes Substance Use Type: Marijuana Substance Use Frequency: Daily Last Used Substance: Hours (ago) Any prior treatment program specific to substance use: No Advance Directives: No Advance Directives Information Provided: No Nutrition Risks: No Nutritional Risk service: No Current occupational status: employed 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 Cognitive needs: No Hearing needs: No Vision needs: No Meds Allergies Allergy/AdvReac Type Severity Reaction Status Date / Time No Known Allergies Allergy Verified 12/23/24 18:38 Physical Exam 2 Vital Signs and Narrative: Vital Signs: Last Vital Signs Temp 100.9 F H 12/23/24 22:00 Pulse 74 12/23/24 22:18 Resp 16 12/23/24 21:51 BP 110/73 12/23/24 22:18 Pulse Ox 98 12/23/24 22:18 O2 Del Method Room Air 12/23/24 22:18 BMI result Body Mass Index 21.6 Middle-aged male lying in bed in no distress Neck supple, no JVD Regular rate and rhythm, S1-S2 heard Regular breath sounds bilaterally, no wheezing or crackles appreciated Abdomen soft nontender, no guarding, no rigidity Patient is awake, alert and oriented to self, place, time and person ; no focal motor deficit Psych: Normal mood Right hand with swelling, erythema, warmth and tenderness ; unable to make a fist Results Labs 12/23/24 18:49 12/23/24 18:49 Labs: Laboratory Results - last 24 hr 12/23/24 12/23/24 18:49 21:05 MCV 93.9 MCH 33.0 MCHC 35.2 RDW 13.6 Plt Count 182 MPV 8.9 L Immature Gran % (Auto) 0.4 Neut % (Auto) 82.0 H Lymph % (Auto) 7.9 L [place] % (Auto) 8.5 Eos % (Auto) 0.9 Baso % (Auto) 0.3 Lymph # (Auto) 1.0 L [place] # (Auto) 1.1 Eos # (Auto) 0.1 Baso # (Auto) 0.0 Abs Immat Gran (auto) 0.05 H Absolute Neuts (auto) 10.6 H Absolute Nucleated RBC 0.000 Nucleated RBC % (auto) 0.0 ESR 16 H Anion Gap 14 Estim Creat Clear Calc 125.3 Estimated GFR > 60 Random Glucose 100 Lactic Acid 0.8 Uric Acid 4.2 Calcium 8.7 Total Bilirubin 0.3 AST 23 ALT 13 Alkaline Phosphatase 75 C-Reactive Protein 2.05 H Total Protein 7.2 Albumin 4.2 Assessment and Plan (1) Sepsis: Status: Acute (2) Cellulitis of hand: Status: Acute Plan This is a 44-year-old male with pertinent history of tobacco use disorder, COPD not on home oxygen, gastroesophageal reflux disease who presents to the emergency department for evaluation of hand swelling and pain. #. Sepsis due to right hand cellulitis: ?tenosynovitis. Resuscitated with IV crystalloids. Lactic acid and blood culture obtained. Initiating empiric IV vancomycin and IV Rocephin. Consulted Orthopedic surgery #. COPD: No exacerbation during admission. Continue home inhalers #. Gastroesophageal reflux disease: ?On PPI Med rec pending DVT prophylaxis: Defer Lovenox until orthopedic surgery evaluation Full code Admit as inpatient and will require two night minimum hospital stay for IV antibiotics (as above), which is not possible in a lesser acute setting. Ortho consult pending Quality Stroke Does the patient have a stroke diagnosis?: No VTE Prior VTE?: No VTE Risk Level:: Medical - moderate - high VTE Device Contraindication: N/A - Device Ordered VTE Drug Contraindication: Treatment Not Indicated
[2024-12-24] VITALS (8 sets, daily range): BP systolic 104–120; BP diastolic 57–66; PULSE 80–93; RESP 14–18; TEMP 37.3–37.8; O2SAT 90–97; BMI 21.7
[2024-12-24] MEDS: iohexoL 350 MG/ML 100 ML INFUS..BTL 85 ML IV (00:01)
[2024-12-24] MEDS: Lactated Ringers 1,000 ML 999 ML IV (00:19)
[2024-12-24] MEDS: Morphine Sulfate 4 MG/ML CARTRIDGE IVPUSH ×4 (00:23→18:20)
--- NOTE | 2024-12-24 00:33 | PC.NURSE ---
This RN assumed care of patient at 00:30, patient transferred from ED 25 to ED 2. Patient oriented to ED room and call cano use, patient verbalized understanding. Patient medicated per MAR for 10/10 pain in right hand. Patient currently resting on stretcher bed, call cano within patient's reach.
[2024-12-24] MEDS: cefTRIAXone sodium 1 GM VIAL IVPUSH ×2 (02:48→21:22)
[2024-12-24 06:32] LABS: MANUAL DIFF FLAG NO
[2024-12-24 06:57] LABS: Anion Gap 13 (12-20); Blood Urea Nitrogen 8 mg/dL (9-16); Calcium 8.5 mg/dL (8.4-10.2); Carbon Dioxide 23 mmol/L (22-29); Chloride 108 mmol/L (96-108); Creatinine Clr Calc Pharmacy 129.7; Estimated Glomerular Filt Rate > 60; Glucose Random 95 mg/dL (60-115); Potassium 3.9 mmol/L (3.3-5.1); Sodium 140 mmol/L (135-145)
[2024-12-24 07:07] LABS: Basophils Percent Auto 0.3 % (0-2); Eosinophils Absolute Auto 0.1 X10*3/uL (0.0-0.4); Eosinophils Percent Auto 0.6 % (0-4); Hematocrit 38.3 % (42.0-52.0); Hemoglobin 13.4 g/dl (14.0-18.0); Imm Gran Abs Auto 0.05 X10*3/uL (0.00-0.03); Imm Gran Pct Auto 0.5 % (0.0-0.4); Lymphocytes Absolute Auto 1.3 X10*3/uL (1.2-4.9); Lymphocytes Percent Auto 13.9 % (20-40); Mean Corpuscular Hemoglobin 32.7 pg (27.0-33.0); Mean Corpuscular Volume 93.4 fL (80.0-98.0); Mean Platelet Volume 9.5 fL (9.4-12.4); Monocytes Percent Auto 9.8 % (2-11); Neutrophils Absolute Auto 7.2 x10*3/uL (2.0-8.3); Neutrophils Percent Auto 74.9 % (45-73); Platelet Count 187 X10*3/uL (160-400); Red Cell Distribution Width 13.7 % (11.0-16.0); White Blood Count 9.7 X10*3/uL (4.8-10.8)
--- NOTE | 2024-12-24 07:16 | PHA.PROG ---
Admission Date/Time: December 23, 2024 23:25 Indication: SEPSIS Weight in k kg Adjusted body weight in Kg: [place] body weight in Kg: Obesity Dosing Indication % IBW: Serum Creatinine - Last 168 Hours 12/23/24 12/24/24 18:49 06:19 Creatinine 0.66 0.64 Estimated CrCl and GFR - Last 168 Hours 12/23/24 12/24/24 18:49 06:19 Estim Creat Clear Calc 125.3 129.7 Estimated GFR > 60 > 60 Vancomycin Loading Dose: 2000 MG Current Vancomycin Dosing Regimen: 1250 MG Q12H Vancomycin Monitoring using AUC goal of 400 - 600 range with trough as surrogate marker: FAI=106 TROUGH=14.5 Date and Time for next Vancomycin Level to be drawn: 12/24/24 @0600 Pharmacist Comments on Vancomycin Plan: Vancomycin dosing will take advantage of [employer] as a clinical decision support tool that uses Bayesian modeling to calculate individual patient's pharmacokinetic parameters and forecast the patient's drug concentration time course with the target goal AUC 24 range of 400 - 600 mg/L/hr.
--- NOTE | 2024-12-24 08:34 | P.CONOP_ITS ---
History of Present Illness HPI Consult date: 12/24/24 Chief complaint: Hand Swelling Narrative: Mr. Sandoval is a 44-year-old right hand dominant male with a past medical history significant for tobacco use, COPD not on home oxygen, gastroesophageal reflux disease who presented to the emergency department yesterday for evaluation of right hand swelling and pain. Patient states he he was working outside and helping his nephew when he developed a blister 1 day prior to presentation. Patient popped the blister and it started t dry up. Yesterday he noticed that his right hand began to develop swelling and there was an increase in pain. His symptoms have been progressive over the last 24 hours. Has associated redness and pain with movement of right hand fingers. He is unable to make a fist due to pain and swelling. Denies IV drug use or alcohol use. Admits cigarette smoking every day. CT obtained in the ED of the right hand: IMPRESSION: Subcutaneous edema predominantly around the metacarpals and thenar eminence. No soft tissue gas or abscess. Limited evaluation for tenosynovitis on CT. Tendons appear normal in caliber. Right hand X-rays: IMPRESSION: 1. No acute disease. Review of Systems 2 Review of Systems: Yes all other systems are reviewed and are negative PMFSH Past Medical History Medical History Smoker ADD (attention deficit disorder) ADHD Asthma COPD (chronic obstructive pulmonary disease) Family History Family History Mother Mental health disorder Substance abuse Brother Mental health disorder Substance abuse Maternal Grandmother Mental health disorder Maternal Aunt Substance abuse Social History Social History Household Members: None Housing: Apartment Do you presently have visiting nurse or other home services: No Alcohol intake: never Patient Tobacco Use Status: Current everyday Tobacco user Tobacco use type: Cigarette Cigarette Packs Per Day: 1 Cigarettes Per Day: 20.0 e-Cigarette/Vaping Use: Never Used Second Hand Smoke Exposure: No Substance Use Type: Marijuana service: No Current occupational status: employed 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 Cognitive needs: No Hearing needs: No Vision needs: No Meds Allergies Allergy/AdvReac Type Severity Reaction Status Date / Time No Known Allergies Allergy Verified 12/23/24 18:38 Active Medications: Current Medications Acetaminophen (Acetaminophen 325 Mg Tablet) 650 mg PO Q6H PRN PRN Reason: Pain, Mild 1-3,fever,headache Calcium Carbonate (Calcium Carbonate 750 Mg Tab.Chew) 750 mg PO Q4H PRN PRN Reason: Heartburn Ceftriaxone Sodium (Ceftriaxone Sodium 1 Gm Vial) 1 gm IVPUSH BEDTIME [facility] Last Admin: 12/24/24 02:48 Dose: 1 gm Vancomycin HCl 1,250 mg/ (Sodium Chloride) 250 mls @ 166.667 mls/hr IV Q12H [facility] Magnesium Hydroxide (Milk Of Magnesia 30 Ml Oral.Susp) 30 ml PO DAILY PRN PRN Reason: Constipation Melatonin (Melatonin 3 Mg Tablet) 6 mg PO BEDTIME PRN PRN Reason: Insomnia Morphine Sulfate (Morphine Sulfate 4 Mg/Ml Cartridge) 4 mg IVPUSH Q4H PRN; Protocol PRN Reason: Pain, Severe (Pain Scale 7-10) Last Admin: 12/24/24 04:25 Dose: 4 mg Ondansetron HCl (Ondansetron Hcl 4 Mg/2 Ml Vial) 4 mg IVPUSH Q8H PRN PRN Reason: Nausea and Vomiting Pharmacy Consult (Consult Rx Vancomycin Dosing) 1 each MISCELLANE DAILY PRN PRN Reason: Consult order Sodium Chloride (0.9 % Sodium Chloride Flush 3 Ml Syringe) 3 ml IVFLUSH QSHIFT [facility] Last Admin: 12/24/24 00:28 Dose: Not Given Physical Exam 2 Vital Signs: Vital Signs: Last Vital Signs Temp 99.8 F 12/24/24 07:31 Pulse 85 12/24/24 07:31 Resp 16 12/24/24 07:31 BP 113/59 L 12/24/24 07:31 Pulse Ox 90 L 12/24/24 07:31 O2 Del Method Room Air 12/24/24 07:31 BMI result Body Mass Index 21.7 Const: General: cooperative, healthy appearing and no acute distress Extrem: Other: Right hand cellulitis. Diffuse erythema and edema. Able to only slightly flex and extend all digits from pain and edema. Tenderness to palpation along the palmar aspect of the hand. No areas of fluctuance. No obvious abscess. Sensation is intact. Capillary refill is brisk. Results Labs 12/24/24 06:19 12/24/24 06:19 Labs: Abnormal lab results 12/23/24 12/24/24 Range/Units 18:49 06:19 WBC 13.0 H (4.8-10.8) X10*3/uL RBC 4.09 L 4.10 L (4.60-5.80) X10*6/uL Hgb 13.5 L 13.4 L (14.0-18.0) g/dl Hct 38.4 L 38.3 L (42.0-52.0) % MPV 8.9 L (9.4-12.4) fL Immature Gran % (Auto) 0.5 H (0.0-0.4) % Neut % (Auto) 82.0 H 74.9 H (45-73) % Lymph % (Auto) 7.9 L 13.9 L (20-40) % Lymph # (Auto) 1.0 L (1.2-4.9) X10*3/uL Abs Immat Gran (auto) 0.05 H 0.05 H (0.00-0.03) X10*3/uL Absolute Neuts (auto) 10.6 H (2.0-8.3) x10*3/uL ESR 16 H (0-15) MM/HR BUN 8 L (9-16) mg/dL C-Reactive Protein 2.05 H (< or = 0.50) mg/dL H & H 12/23/24 12/24/24 Range/Units 18:49 06:19 Hgb 13.5 L 13.4 L (14.0-18.0) g/dl Hct 38.4 L 38.3 L (42.0-52.0) % All other labs normal. Assessment and Plan (1) Hand swelling: Status: Acute (2) Cellulitis of hand: Status: Acute Plan Continue IV abx for cellulitis NPO after midnight for reevaluation in the AM Encourage gentle ROM of the hand and wrist. No area of abscess CT obtained in the ED of the right hand: IMPRESSION: Subcutaneous edema predominantly around the metacarpals and thenar eminence. No soft tissue gas or abscess. Limited evaluation for tenosynovitis on CT. Tendons appear normal in caliber. Right hand X-rays: IMPRESSION: 1. No acute disease. Procedures Date of Service Date of Service: 12/24/24
[2024-12-24] MEDS: 0.9 % Sodium Chloride Flush 3 ML SYRINGE IVFLUSH ×3 (08:53→21:22)
[2024-12-24] MEDS: vancomycin HCL 1,250 MG in 0.9 % Sodium Chloride 250 ML 166.67 MG IV ×2 (08:53→19:42)
--- NOTE | 2024-12-24 09:36 | PHA.MEDREC ---
Addendum entered by Lucero Gusman RPh 12/24/24 11:06: [facility] REVIEWED Original Note: Pharmacy Consult ? Medication Reconciliation Pharmacy has completed the medication reconciliation. Spoke to pt to confirm meds. Pt states they still take Incruse Ellipta, but rarely.
--- NOTE | 2024-12-24 12:30 | MHC.CM.PN ---
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
--- NOTE | 2024-12-24 14:47 | HO.PM.IMPN ---
Subjective Subjective Date of Service: 12/24/24 Interval History: seen and evaluated this morning complaining of significant pain and swelling denies fever or chills no other events Review of Systems Review of Systems: Yes all other systems are reviewed and are negative Physical Exam Vital Signs: Vital Signs: Last Vital Signs Temp 99.8 F 12/24/24 07:31 Pulse 85 12/24/24 07:31 Resp 16 12/24/24 07:31 BP 113/59 L 12/24/24 07:31 Pulse Ox 90 L 12/24/24 07:31 O2 Del Method Room Air 12/24/24 07:31 BMI result Body Mass Index 21.7 Const: Other: Constitutional : Awake, interactive, not in distress Neck : Normal inspection, Supple Cardiovascular : RRR, no JVP, no lower extremity edema Respiratory : good bilateral air entry, no crackles, wheezes or rhonchi Gastrointestinal: soft, lax, Normal bowel sounds, Non tender Skin : Warm, Dry, had swelling and tenderness, decrease ROM, mild erythema, no drainage noted Neurological : Alert & oriented x3, No focal deficit Objective Data Active Medications Acetaminophen (Acetaminophen 325 Mg Tablet) 650 mg PO Q6H PRN PRN Reason: Pain, Mild 1-3,fever,headache Calcium Carbonate (Calcium Carbonate 750 Mg Tab.Chew) 750 mg PO Q4H PRN PRN Reason: Heartburn Ceftriaxone Sodium (Ceftriaxone Sodium 1 Gm Vial) 1 gm IVPUSH BEDTIME [facility] Last Admin: 12/24/24 02:48 Dose: 1 gm Documented By: ISABELA Vancomycin HCl 1,250 mg/ (Sodium Chloride) 250 mls @ 166.667 mls/hr IV Q12H [facility] Last Infusion: 12/24/24 10:25 Dose: Infused Documented By: DYLAN Magnesium Hydroxide (Milk Of Magnesia 30 Ml Oral.Susp) 30 ml PO DAILY PRN PRN Reason: Constipation Melatonin (Melatonin 3 Mg Tablet) 6 mg PO BEDTIME PRN PRN Reason: Insomnia Morphine Sulfate (Morphine Sulfate 4 Mg/Ml Cartridge) 4 mg IVPUSH Q4H PRN; Protocol PRN Reason: Pain, Severe (Pain Scale 7-10) Last Admin: 12/24/24 14:12 Dose: 4 mg Documented By: DYLAN Ondansetron HCl (Ondansetron Hcl 4 Mg/2 Ml Vial) 4 mg IVPUSH Q8H PRN PRN Reason: Nausea and Vomiting Pharmacy Consult (Consult Rx Vancomycin Dosing) 1 each MISCELLANE DAILY PRN PRN Reason: Consult order Sodium Chloride (0.9 % Sodium Chloride Flush 3 Ml Syringe) 3 ml IVFLUSH QSHIFT [facility] Last Admin: 12/24/24 14:14 Dose: 3 ml Documented By: DYLAN Labs 12/24/24 06:19 12/24/24 06:19 Labs: Laboratory Results - last 24 hr 12/23/24 12/23/24 12/24/24 18:49 21:05 06:19 MCV 93.9 93.4 MCH 33.0 32.7 MCHC 35.2 35.0 RDW 13.6 13.7 Plt Count 182 187 MPV 8.9 L 9.5 Immature Gran % (Auto) 0.4 0.5 H Neut % (Auto) 82.0 H 74.9 H Lymph % (Auto) 7.9 L 13.9 L [place] % (Auto) 8.5 9.8 Eos % (Auto) 0.9 0.6 Baso % (Auto) 0.3 0.3 Lymph # (Auto) 1.0 L 1.3 [place] # (Auto) 1.1 1.0 Eos # (Auto) 0.1 0.1 Baso # (Auto) 0.0 0.0 Abs Immat Gran (auto) 0.05 H 0.05 H Absolute Neuts (auto) 10.6 H 7.2 Absolute Nucleated RBC 0.000 0.000 Nucleated RBC % (auto) 0.0 0.0 ESR 16 H Anion Gap 14 13 Estim Creat Clear Calc 125.3 129.7 Estimated GFR > 60 > 60 Random Glucose 100 95 Lactic Acid 0.8 Uric Acid 4.2 Calcium 8.7 8.5 Total Bilirubin 0.3 AST 23 ALT 13 Alkaline Phosphatase 75 C-Reactive Protein 2.05 H Total Protein 7.2 Albumin 4.2 Assessment and Plan (1) Hand swelling: Status: Acute (2) Sepsis: Status: Acute (3) Cellulitis of hand: Status: Acute Plan This is a 44-year-old male with pertinent history of tobacco use disorder, COPD not on home oxygen, gastroesophageal reflux disease who presents to the emergency department for evaluation of hand swelling and pain. Sepsis due to right hand cellulitis No evidence of tenosynovitis IV crystalloids. blood culture pending Continue IV vancomycin and IV Rocephin Orthopedic surgery input appreciated, keep NPO after midnight and will reeval in morning follow Vancomycin trough COPD No exacerbation during admission Continue home inhalers Gastroesophageal reflux disease PPI DVT prophylaxis: Lovenox will require overnight minimum hospital stay for IV antibiotics (as above), and specialist follow up which is not possible in a lesser acute setting. Quality Stroke Does the patient have a stroke diagnosis?: No VTE Prior VTE?: No VTE Risk Level:: Medical - moderate - high VTE Device Contraindication: N/A - Device Ordered VTE Drug Contraindication: Treatment Not Indicated
[2024-12-24] MEDS: Ibuprofen 400 MG TABLET PO (16:02)
[2024-12-24] MEDS: Enoxaparin Sodium 40 MG/0.4 ML SYRINGE SUBCUT (16:03)
--- NOTE | 2024-12-24 16:13 | MHC.CM.PN ---
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
[2024-12-25] MEDS: Morphine Sulfate 4 MG/ML CARTRIDGE IVPUSH ×2 (03:19→07:56)
[2024-12-25 03:33] VITALS: BP 116/66; PULSE 83; RESP 18; TEMP 37.7; O2SAT 93
[2024-12-25 06:07] LABS: MANUAL DIFF FLAG NO
[2024-12-25 06:12] LABS: Basophils Percent Auto 0.5 % (0-2); Eosinophils Absolute Auto 0.1 X10*3/uL (0.0-0.4); Eosinophils Percent Auto 1.2 % (0-4); Hemoglobin 13.9 g/dl (14.0-18.0); Imm Gran Abs Auto 0.03 X10*3/uL (0.00-0.03); Imm Gran Pct Auto 0.4 % (0.0-0.4); Lymphocytes Absolute Auto 1.1 X10*3/uL (1.2-4.9); Lymphocytes Percent Auto 12.9 % (20-40); Mean Corpuscular HGB Conc 34.8 g/dl (31.0-36.0); Mean Corpuscular Hemoglobin 32.6 pg (27.0-33.0); Mean Corpuscular Volume 93.7 fL (80.0-98.0); Mean Platelet Volume 8.8 fL (9.4-12.4); Monocytes Absolute Auto 0.9 X10*3/uL (0.1-1.2); Monocytes Percent Auto 10.6 % (2-11); Neutrophils Absolute Auto 6.4 x10*3/uL (2.0-8.3); Neutrophils Percent Auto 74.4 % (45-73); Platelet Count 187 X10*3/uL (160-400); Red Blood Count 4.27 X10*6/uL (4.60-5.80); Red Cell Distribution Width 13.5 % (11.0-16.0); White Blood Count 8.5 X10*3/uL (4.8-10.8)
[2024-12-25 06:23] LABS: Vancomycin Random 10.4 mcg/mL (15-20)
[2024-12-25 06:25] LABS: Anion Gap 11 (12-20); Blood Urea Nitrogen 13 mg/dL (9-16); Calcium 8.7 mg/dL (8.4-10.2); Carbon Dioxide 25 mmol/L (22-29); Chloride 106 mmol/L (96-108); Creatinine Clr Calc Pharmacy 133.9; Estimated Glomerular Filt Rate > 60; Glucose Random 95 mg/dL (60-115); Sodium 138 mmol/L (135-145)
--- NOTE | 2024-12-25 06:39 | HE.PHANOTE ---
rin maradiaga Patients level came back this morning at 10.4. Will increase patients dose to 1500 mg Q12H. Predicted AUC 490. Next level to be taken 12/26 @0600.
[2024-12-25 07:24] VITALS: BP 118/68; PULSE 80; RESP 16; TEMP 36.7; O2SAT 94
[2024-12-25] MEDS: Ibuprofen 400 MG TABLET PO ×2 (07:55→11:53)
[2024-12-25] MEDS: vancomycin HCL 1,500 MG in 0.9 % Sodium Chloride 500 ML 333.33 MG IV (07:56)
[2024-12-25] MEDS: 0.9 % Sodium Chloride Flush 3 ML SYRINGE IVFLUSH (08:11)
[2024-12-25] MEDS: Tiotropium Bromide 2.5 mcg 1 PUFF/2.5 MCG MIST.INHAL 2 PUFF INHALE (08:12)
[2024-12-25 08:15] VITALS: PULSE 96; RESP 18; O2SAT 90
--- NOTE | 2024-12-25 08:20 | PM.PNORT ---
Subjective Subjective Date of Service: 12/25/24 Interval history: Right hand decreasing erythema and increase in motion Patient is resting in bed comfortably No overnight events Pain is managed No additional complaints Physical Exam Vital Signs: Vital Signs: Last Vital Signs Temp 98.0 F 12/25/24 07:24 Pulse 96 12/25/24 08:15 Resp 18 12/25/24 08:15 BP 118/68 12/25/24 07:24 Pulse Ox 94 12/25/24 07:24 O2 Del Method Room Air 12/25/24 07:24 BMI result Body Mass Index 21.7 Const: General: cooperative, healthy appearing and no acute distress Extrem: Other: Right hand decreasing erythema. Able to perform more range of motion in all digits today. Still unable to perform making a closed fist. No area of abscess formation noted. Sensation is intact. Cap refill is brisk. Procedures Date of Service Date of Service: 12/25/24 Progress Note: A&P Assessment and plan (1) Cellulitis of hand: Status: Acute Plan Continue IV antibiotics Continue to encourage gentle range of motion of the hand and wrist No OR indications at this time Regular diet ordered No additional orthopedic intervention needed at this time Time Spent With Patient Time: Total time managing care of this patient today ____ minutes. Quality Stroke Does the patient have a stroke diagnosis?: No VTE Prior VTE?: No VTE Risk Level:: Medical - moderate - high VTE Device Contraindication: N/A - Device Ordered VTE Drug Contraindication: Treatment Not Indicated
--- NOTE | 2024-12-25 14:12 | PM.DS ---
DS: Providers Provider Date of Service: 12/25/24 Date of admission: 12/23/24 23:25 Date of discharge: 12/25/24 Primary care physician: Dipak Moseley MD Consults: 12/24/24 01:39 Consult to Orthopedics Routine Consulting Provider: [facility] [place] Orthopedic Surgeons Reason for consultation: tenosynovitis 12/24/24 04:49 Consult to Wound Care Routine Reason for consultation: cellulitis/ open skin area to right hand DS: Diagnosis Discharge Diagnosis (1) Cellulitis of hand: Status: Acute (2) Hand swelling: Status: Acute (3) Sepsis: Status: Acute DS: Summary Hospital Course Hospital Course: Admission note HPI This is a 44-year-old male with pertinent history of tobacco use disorder, COPD not on home oxygen, gastroesophageal reflux disease who presents to the emergency department for evaluation of hand swelling and pain. Patient states he he was working outside and helping his nephew when he developed a blister 1 day prior to presentation. Patient popped the blister and noticed that his right hand had developed swelling. His symptoms have been progressive over the last 24 hours. Has associated redness and pain with movement of right hand fingers. He is unable to make a fist due to pain and swelling. This has never happened before. Denies IV drug use or alcohol use. Admits cigarette smoking every day. No fever, chills, chest pain, palpitations, shortness of breath, abdominal pain, changes in urinary or bowel habits. In the emergency department, patient was found to be septic and initiated on empiric IV antibiotics. Imaging with subcutaneous edema predominantly around the metacarpals and thenar eminence. Hospital course The patient was admitted for treatment of sepsis due to right hand cellulitis with No evidence of tenosynovitis on images of the hand. Treated with IV crystalloids and IV antibiotics of vancomycin and Rocephin with good response over the course of hospital stay and swelling and erythema improved significantly with improved range of motion. Orthopedic surgery evaluated the patient and recommended no surgical intervention needed. blood cultures remained negative and he wanted to leave before they are finalized and promised to come back if they turn positive. will follow on his cultures. To be discharged on Augmentin and Doxycycline for 1 more week. Discharge plan Continue Doxycycline and Augmentin for 1 more week Ibuprofen 3 times a day with meals for pain and swelling Keep hand elevated and do exercise for gentle range of motion of the hand and wrist Follow up with [facility] [place] Orthopedic surgery as outpatient if needed Come back to ED for worsening swelling, erythema or fever Time Attestation Discharge Coordination Time (in mins): 41 Quality: Safe Use of Opioids Does Pt have an Active Cancer Diagnosis on the Problem List?: No Quality: Stroke Does the patient have a stroke diagnosis?: No Physical Exam Vital Signs: Vital Signs: Last Vital Signs Temp 98.0 F 12/25/24 07:24 Pulse 96 12/25/24 08:15 Resp 18 12/25/24 08:15 BP 118/68 12/25/24 07:24 Pulse Ox 94 12/25/24 07:24 O2 Del Method Room Air 12/25/24 07:24 BMI result Body Mass Index 21.7 Const: Other: Constitutional : Awake, interactive, not in distress Neck : Normal inspection, Supple Cardiovascular : RRR, no JVP, no lower extremity edema Respiratory : good bilateral air entry, no crackles, wheezes or rhonchi Gastrointestinal: soft, lax, Normal bowel sounds, Non tender Skin : Warm, Dry, signifncant improvement in swelling and tenderness, improved ROM, no erythema, no drainage noted , dry think skin Neurological : Alert & oriented x3, No focal deficit DS: Data Data Completed and Pending Labs on day of discharge: Laboratory Results - last 24 hr 12/25/24 06:01 WBC 8.5 RBC 4.27 L Hgb 13.9 L Hct 40.0 L MCV 93.7 MCH 32.6 MCHC 34.8 RDW 13.5 Plt Count 187 MPV 8.8 L Immature Gran % (Auto) 0.4 Neut % (Auto) 74.4 H Lymph % (Auto) 12.9 L [place] % (Auto) 10.6 Eos % (Auto) 1.2 Baso % (Auto) 0.5 Lymph # (Auto) 1.1 L [place] # (Auto) 0.9 Eos # (Auto) 0.1 Baso # (Auto) 0.0 Abs Immat Gran (auto) 0.03 Absolute Neuts (auto) 6.4 Absolute Nucleated RBC 0.000 Nucleated RBC % (auto) 0.0 Sodium 138 Potassium 4.0 Chloride 106 Carbon Dioxide 25 Anion Gap 11 L BUN 13 Creatinine 0.62 Estim Creat Clear Calc 133.9 Estimated GFR > 60 Random Glucose 95 Calcium 8.7 Random Vancomycin 10.4 L Preliminary micro results at discharge 12/23/24 21:05 Blood Culture - Preliminary Blood - Venous No growth after 24 hours. 12/23/24 21:05 Blood Culture - Preliminary Blood - Venous No growth after 24 hours. Imaging XR HAnd : Radiologist's impression: IMPRESSION: 1. No acute disease. This document has been electronically signed by: Jordy Godoy M.D. on 12/24/2024 03:24:54 Discharge Plan Discharge Anticipated Discharge Date/Time: 12/25/24 14:07 Patient Disposition: Home, Self-Care Discharge Diagnosis: Hand cellulitis Referrals: Dipak Moseley MD [Primary Care Provider] - 1 Week Discharge Medications: New doxycycline monohydrate 100 mg capsule 100 mg PO BID Qty: 14 0RF amoxicillin-pot clavulanate 875-125 mg tablet 1 tab PO BID Qty: 14 0RF ammonium lactate 12 % lotion 1 appl topical DAILY Qty: 400 1RF Continued cetirizine [All Day Allergy (cetirizine)] 10 mg tablet 10 mg PO DAILY PRN (Reason: allergy symptoms) 30 Days Qty: 30 1RF ibuprofen 800 mg tablet 800 mg PO Q8H PRN (Reason: pain) Qty: 20 0RF albuterol sulfate 90 mcg/actuation HFA aerosol inhaler 2 puff inhalation Q6H PRN (Reason: COPD) Incruse Ellipta 62.5 mcg/actuation blister with device 1 inh inhalation DAILY 30 Days Qty: 30 2RF Discharge Orders: Discharge Order (Routine); Ordered 12/25/24 Ordered By: Jefry West Diet: Advance to usual diet Activity on Discharge: As tolerated Stand Alone Forms: Patient Portal Discharge page, Work/School Release Print Language: Tamazight Care Plan Goals: Continue Doxycycline and Augmentin for 1 more week Ibuprofen 3 times a day with meals for pain and swelling Keep hand elevated and do exercise for gentle range of motion of the hand and wrist Follow up with [facility] [place] Orthopedic surgery as outpatient if needed Come back to ED for worsening swelling, erythema or fever Health Concerns: Hand cellulitis Plan of Treatment: Antibiotics Assessment: as above
--- NOTE | 2024-12-25 14:24 | MHC.CM.PN ---
PT TO [place] HOME TODAY VIA SELF TRANSPORT NO SERVICES INDICATED
--- NOTE | 2024-12-25 14:25 | HO.WOUND ---
Wound Consult: Initial 44yr old?male admitted to [facility] on 12/23/24 - See progress notes and H&P for detailed history.? Wound consult placed for Right hand.? Patient agreeable to assessment and photo documentation.? Chart review reveals patient was seen and followed by Ortho Surgery - no topica recommendations made as patient skin remains intact. No topical interventions needed from inpt wound care at this time due to intact tissue. Right hand Right Hand Palm side Hand Cellulitis Etiology: ?Cellulitis intact tissue Wound Bed: intact swollen tissue with palm side callus dry and intact not open or drainaging Drainage / Odor: None Yesica wound: ? No Induration, Fluctuance or Warmth noted Pain: painful to palpation Goals of Treatment: ?Defer to ortho team - no topical interventions needed.
== END 2024-12-25 14:55 | disposition home or self-care (01) | DRG 720 ==
LOC: HO.ED 23:40 → HO.EDOVER 23:49 → HO.S3 12-24 03:08
PROVIDERS: Nurse Practitioner Family; Physician Assistant; Admitting Provider Student in an Organized Health Care Education/Training Program; Emergency Provider Emergency Medicine; PCP Family Medicine; Visit Provider Student in an Organized Health Care Education/Training Program
DX: A41.9 Sepsis, unspecified organism (principal); F17.210 Nicotine dependence, cigarettes, uncomplicated; L03.113 Cellulitis of right upper limb; Z71.6 Tobacco abuse counseling; J44.9 Chronic obstructive pulmonary disease, unspecified; K21.9 Gastro-esophageal reflux disease without esophagitis; Z79.899 Other long term (current) drug therapy
CPT/HCPCS: 36415; 73130; 73201; 80048; 80053; 80202; 83605; 84550; 85025; 85652; 86140; 87040; 93971; 94640; 99285; J0696; J1650; J2270; J2543; J3370; J3371; J7120; Q9967

== ENCOUNTER → 2024-12-23 20:44 | Outpatient (BNV) | payer OTHER, SELFPAY | PROVIDERS: Admitting Provider Student in an Organized Health Care Education/Training Program; Emergency Provider Emergency Medicine; PCP Family Medicine; Visit Provider Student in an Organized Health Care Education/Training Program | DX: M79.641 Pain in right hand (principal); R60.0 Localized edema | CPT/HCPCS: 73130; 73201; 93971 ==

== ENCOUNTER → 2024-12-23 23:25 | Outpatient (BNV) | payer OTHER, SELFPAY | PROVIDERS: Admitting Provider Student in an Organized Health Care Education/Training Program; Emergency Provider Emergency Medicine; PCP Family Medicine; Visit Provider Physician Assistant | DX: M79.89 Other specified soft tissue disorders (principal); L03.113 Cellulitis of right upper limb | CPT/HCPCS: 99222 ==

== ENCOUNTER → 2024-12-23 23:25 | Outpatient (BNV) | payer OTHER, SELFPAY | PROVIDERS: Admitting Provider Student in an Organized Health Care Education/Training Program; Emergency Provider Emergency Medicine; PCP Family Medicine; Visit Provider Student in an Organized Health Care Education/Training Program | DX: A41.9 Sepsis, unspecified organism (principal); L03.113 Cellulitis of right upper limb; M79.89 Other specified soft tissue disorders | CPT/HCPCS: 99222; 99232; 99239 ==